=== PATIENT | female | born 1970 | race Caucasian/White ===

== ENCOUNTER → 2016-09-22 | Outpatient (CLI) | payer BC ==
[2014-05-03 11:22] VITALS: BP 143/84
[~2016-09-22] MED LIST: ALPR0.254 PO; ALPR0.5T PO; ANAS1TAB3 PO; DOCU-27 PO; FLUT1DIS IH; OXYC-323 PO; advair INH
--- NOTE | 2016-09-22 16:15 | KCIC ---
EXAM: Dual energy x-ray absorptiometry (DEXA). HISTORY: 45-year-old female on chemotherapy presents for osteoporosis screening. COMPARISON: None. TECHNIQUE: Dual energy x-ray absorptiometry of the lumbar spine and left hip was performed. Calculation of bone mineral density based on standard deviations above or below the expected young adult normal value (T-score) was completed. FINDINGS: The average bone mineral density in the 1st through 4th lumbar vertebrae is 1.017 g/cmxcm, corresponding with a T-score of -0.3. The average total bone mineral density in the left hip is 0.960 g/cmxcm, corresponding with a T-score of -0.1. IMPRESSION: Normal bone mineral density. Note: Definitions established by the World Health Organization: 1. Normal: T-score is -1.0 or above. 2. Osteopenia: T-score is between -1.0 and -2.5 . 3. Osteoporosis: T-score is -2.5 or below. Electronically signed by: Giselle Masterson MD (09/22/2016 4:12 PM)
== END | disposition home or self-care (01) ==
LOC: KCIC DEXA 15:19
PROVIDERS: ATTEND Internal Medicine Hematology & Oncology
DX: M81.0 Age-related osteoporosis without current pathological fracture (principal); C50.211 Malignant neoplasm of upper-inner quadrant of right female breast; M85.88 Other specified disorders of bone density and structure, other site; Z78.0 Asymptomatic menopausal state
CPT/HCPCS: 77080

== ENCOUNTER → 2019-12-05 | Outpatient (CLI) | payer BC ==
[2014-05-03 11:22] VITALS: BP 143/84
[~2019-12-05] MED LIST changes: -ANAS1TAB3 PO; +ANAS1TAB47 PO; +DOCU-109 PO; -DOCU-27 PO; -OXYC-323 PO; +OXYC1TAB15 PO
--- NOTE | 2019-12-05 08:35 | KCIC ---
Bone mineral density exam History: Postmenopausal, breast cancer and chemotherapy treatment Comparison: 09/22/2016 Findings: Bone mineral density examination utilizing DEXA was performed. Left hip bone mineral density of 0.925 g/cm2 corresponds with a T score -0.1, Z score 0.3. There has been -3.6% decrease. The bone mineral density of the lumbar spine was 1.019 g/cm2 which corresponds with a T-score of -0.3, Z score 0.4. There has been 0.3% increase. By World Congress on Osteoporosis criteria, a T score of 0 to-1 SD is considered to be within normal limits. A T score of -1 to -2.5 SD is considered osteopenia. A T score less than -2.5 SD is considered osteoporosis Impression: 1. There is normal bone density of the left hip and the lumbar spine. Electronically signed by: Dylon Salguero MD (12/05/2019 8:32 AM) [id number]
== END | disposition home or self-care (01) ==
LOC: KCIC DEXA 08:03
PROVIDERS: ATTEND Internal Medicine Hematology & Oncology
DX: C50.211 Malignant neoplasm of upper-inner quadrant of right female breast (principal); Z17.0 Estrogen receptor positive status [ER+]; Z13.820 Encounter for screening for osteoporosis
CPT/HCPCS: 77080

== ENCOUNTER → 2020-02-04 | Outpatient (CLI) | payer OTHER, BC ==
[2014-05-03 11:22] VITALS: BP 143/84
== END ==
LOC: LAB 08:04
PROVIDERS: ATTEND Internal Medicine Pulmonary Disease
DX: U07.1 COVID-19 (principal)
CPT/HCPCS: U0003-CS

== ENCOUNTER 2020-02-11 13:27 | Inpatient (IN) | payer BC, OTHER ==
[~2020-02-11] VITALS: Ht 172.7 cm; Wt 113.3 kg
--- NOTE | 2020-02-11 14:33 | RAD ---
CHEST AP ONLY History: Reason: sob, covid / Spl. Instructions: / History: Comparison: December 06, 2013 Findings: Multifocal ill-defined opacities bilaterally. No pleural effusion. No pneumothorax. Enlarged cardiac size although portable technique accentuates cardiac size. Impression: 1. Ill-defined multifocal opacities bilaterally, concerning for pneumonia including viral pneumonia. Recommend follow-up to ensure resolution. Electronically signed by: Bola Iniguez DO (02/11/2020 2:30 PM) [id number]
[2020-02-11 15:03] LABS: BASO % 0 % (0-3); EOS % 0 % (0-3); HEMATOCRIT 38.6 % (36.0-47.0); HEMOGLOBIN 13.3 g/dL (12.0-15.5); LYMPH # 0.9 x10^3/uL (1.0-4.8); LYMPH % 22 % (24-48); MEAN CORPUSCULAR HEMOGLOBIN 32 pg (25-35); MEAN CORPUSCULAR HGB CONC 35 g/dL (31-37); MEAN CORPUSCULAR VOLUME 92 fL (79-100); MONO # 0.2 x10^3/uL (0.0-1.1); MONO % 4 % (0-9); NEUT % 74 % (31-73); PLATELET COUNT 185 x10^3/uL (140-400); RED CELL DISTRIBUTION WIDTH 12.7 % (11.5-14.5); WHITE BLOOD COUNT 4.1 x10^3/uL (4.0-11.0)
[2020-02-11 15:11] LABS: CALCIUM 8.9 mg/dL (8.5-10.1); CREATININE 1.1 mg/dL (0.6-1.0)
[2020-02-11 15:17] LABS: ALBUMIN/GLOBULIN RATIO 0.7 (1.0-1.7); C-REACTIVE PROTEIN 59.9 mg/L (0-3.3); TOTAL BILIRUBIN 0.4 mg/dL (0.2-1.0); TOTAL PROTEIN 7.2 g/dL (6.4-8.2)
--- NOTE | 2020-02-11 16:01 | ED.ADGEN ---
Past Medical History Past Medical History: Asthma, Cancer, Hypertension Additional Past Medical Histor: RIGHT BREAST CA Past Surgical History: Hysterectomy Additional Past Surgical Histo: BIALTERAL MASTECTOMY Smoking Status: Former Smoker Alcohol Use: Occasionally General Adult EDM: Chief Complaint: FEVER HPI: HPI: Patient is 49-year-old female who presents to the emergency room complaining of fever, cough, shortness of breath. Patient tested positive for coronavirus last Tuesday. She has not gotten any better. She saw her doctor today who recommended she come to the emergency room to be evaluated. Review of Systems: Review of Systems: General: Reports fever, chills, sweats, fatigue Eyes: Denies drainage, blurred vision, eye redness HENT: Denies rhinorrhea, sore throat, earache Respiratory: Reports cough, shortness of breath Cardiac: Denies edema, palpitations, chest pain GI: Denies abdominal pain, Nausea, vomiting MSK: Denies back pain, neck pain Skin: Denies rash, jaundice Neuro: Denies headache, dizziness Psychiatric: Denies SI/HI Allergies: Allergies: Allergies Coded Allergies Type Severity Reaction Last Updated Verified metoclopramide Allergy Severe seizures 05/03/14 Yes prochlorperazine Allergy Severe seizures 05/03/14 Yes latex Allergy Intermediate RED RASH FROM GLOVES AND TAPES 05/03/14 Yes levofloxacin Allergy Intermediate Rash 05/03/14 Yes morphine Allergy Intermediate Hives 02/11/20 Yes adhesive Adverse Reaction Intermediate red welts 05/03/14 Yes Physical Exam: PE: General: Awake, alert, NAD. Well Nourished, well hydrated. Cooperative HEENT: Atraumatic, EOMI, PERRL, airway patent, moist oral mucosa Neck: Supple, trachea midline Respiratory: Decreased breath sounds with crackles bilaterally CV: RRR, no murmur, cap refill <2 GI: Soft, nondistended, nontender, no masses MSK: No obvious deformities Skin: Warm, dry, intact Neuro: A&O x3, speech NL, sensory and motor grossly intact, no focal deficits Psych: Normal affect, normal mood, not suicidal or homicidal Current Patient Data: Labs: Laboratory Tests Test 02/11/20 14:42 White Blood Count 4.1 x10^3/uL (4.0-11.0) Red Blood Count 4.20 x10^6/uL (3.50-5.40) Hemoglobin 13.3 g/dL (12.0-15.5) Hematocrit 38.6 % (36.0-47.0) Mean Corpuscular Volume 92 fL (79-100) Mean Corpuscular Hemoglobin 32 pg (25-35) Mean Corpuscular Hemoglobin Concent 35 g/dL (31-37) Red Cell Distribution Width 12.7 % (11.5-14.5) Platelet Count 185 x10^3/uL (140-400) Neutrophils (%) (Auto) 74 % (31-73) H Lymphocytes (%) (Auto) 22 % (24-48) L Monocytes (%) (Auto) 4 % (0-9) Eosinophils (%) (Auto) 0 % (0-3) Basophils (%) (Auto) 0 % (0-3) Neutrophils # (Auto) 3.0 x10^3/uL (1.8-7.7) Lymphocytes # (Auto) 0.9 x10^3/uL (1.0-4.8) L Monocytes # (Auto) 0.2 x10^3/uL (0.0-1.1) Eosinophils # (Auto) 0.0 x10^3/uL (0.0-0.7) Basophils # (Auto) 0.0 x10^3/uL (0.0-0.2) Sodium Level 136 mmol/L (136-145) Potassium Level 3.0 mmol/L (3.5-5.1) L Chloride Level 98 mmol/L (98-107) Carbon Dioxide Level 29 mmol/L (21-32) Anion Gap 9 (6-14) Blood Urea Nitrogen 17 mg/dL (7-20) Creatinine 1.1 mg/dL (0.6-1.0) H Estimated GFR (Cockcroft-Gault) 53.0 BUN/Creatinine Ratio 15 (6-20) Glucose Level 113 mg/dL (70-99) H Calcium Level 8.9 mg/dL (8.5-10.1) Total Bilirubin 0.4 mg/dL (0.2-1.0) Aspartate Amino Transferase (AST) 42 U/L (15-37) H Alanine Aminotransferase (ALT) 65 U/L (14-59) H Alkaline Phosphatase 98 U/L (46-116) Troponin I Quantitative < 0.017 ng/mL (0.000-0.055) C-Reactive Protein, Quantitative 59.9 mg/L (0-3.3) H IY-Zeb-Q-Type Natriuretic Peptide 99 pg/mL (0-124) Total Protein 7.2 g/dL (6.4-8.2) Albumin 3.0 g/dL (3.4-5.0) L Albumin/Globulin Ratio 0.7 (1.0-1.7) L Laboratory Tests 02/11/20 14:42 Laboratory Tests 02/11/20 14:42 Vital Signs: Vital Signs Date Time Temp Pulse Resp B/P (MAP) Pulse Ox O2 Delivery O2 Flow Rate FiO2 02/11/20 14:42 99.3 78 20 103/60 (74) 88 Room Air 99.3 EKG: EKG: [] Heart Score: Risk Factors: Risk Factors: DM, Current or recent (<one month) smoker, HTN, HLP, family history of CAD, obesity. Risk Scores: Score 0 - 3: 2.5% MACE over next 6 weeks - Discharge Home Score 4 - 6: 20.3% MACE over next 6 weeks - Admit for Clinical Observation Score 7 - 10: 72.7% MACE over next 6 weeks - Early Invasive Strategies Radiology/Procedures: Radiology/Procedures: [] Course & Med Decision Making: Course & Med Decision Making Pertinent Labs and Imaging studies reviewed. (See chart for details) Patient is a 49-year-old female who presents to the emergency room with shortness of breath, cough, fever. Patient has known coronavirus 19. Patient's risk factors include asthma. Upon reevaluation, patient is doing better on oxygen. Risk stratifying work-up was ordered including chest x-ray, d-dimer, CPK, CRP, LDH, troponin, ferritin, CBC, CMP. At this time, patients labs, vitals, and exam are significant for elevated LFTs, elevated inflammatory markers, bilateral infiltrates on x-ray. Due to patient's risk and clinical picture, they will need to be admitted at this time. IVFs will be limited due to concern for fluid overload in COVID-19 patients. Patient will be given empiric antibiotics due to infiltrates and risk of co-bacterial infection. Further treatment will be dictated by the inpatient team. Dragon Disclaimer: Dragon Disclaimer: This electronic medical record was generated, in whole or in part, using a voice recognition dictation system. Departure Departure Impression: Primary Impression: 2019 novel coronavirus detected Additional Impression: Hypoxia Disposition: 09 ADMITTED INPT THIS HOSP Condition: IMPROVED Referrals: CARLOS ENRIQUE DIALLO MD (PCP) Problem Qualifiers GURMEET MENDES MD Feb 11, 2020 16:01
[2020-02-11 16:14] LABS: LACTATE DEHYDROGENASE 376 U/L (81-234)
[2020-02-11] MEDS ORDERED: cefTRIAXone IV Push 1 GM VIAL. IVP ONE (16:15)
[2020-02-11] MEDS ORDERED: DEXAMETHASONE SOD PHOS 4 MG/ML VIAL IVP ONE (16:15)
[2020-02-11] MEDS ORDERED: POTASSIUM CHLORIDE 20 MEQ TABLET.ER. PO PRN (17:30)
[2020-02-11] MEDS ORDERED: ONDANSETRON PF 4 MG/2 ML VIAL. IVP PRN (17:30)
[2020-02-11] MEDS ORDERED: SENNOSIDES 8.6 MG TABLET PO PRN (17:30)
[2020-02-11] MEDS ORDERED: DEXTROSE 50% 25 GM / 50ML DISP.SYRIN. IV PRN (17:30)
[2020-02-11] MEDS ORDERED: ANTI-COAG MONITOR BY PHARMACY. MC PRN (17:30)
[2020-02-11] MEDS ORDERED: MAGNESIUM SULFATE 2GM 50 ML IV SCH (17:30)
[2020-02-11] MEDS ORDERED: ELECTROLYTE (NON-ICU) PROTOCOL. MC PRN (17:30)
[2020-02-11] MEDS ORDERED: POTASSIUM CHLORIDE 10MEQ 100 ML IV PRN (17:30)
[2020-02-11] MEDS ORDERED: DOCUSATE SODIUM 100 MG CAPSULE. PO PRN (17:30)
--- NOTE | 2020-02-11 17:36 | PDOC1 ---
History and Physical Date of Service: DOS: DATE: 02/11/20 TIME: 17:27 Chief Complaint: Chief Complain: Short of breath History of Present Illness: HPI: Patient is a 49-year-old female with past medical history of asthma and hypertension who presents with 3 to 4 days of fever cough and shortness of breath. Patient states that she returned from [place] last Tuesday and she gotten tested and she was positive for coronavirus. She states that she did have close contact with a COVID positive friend when they went to [place]. They are a total of 8 other friends that were affected and one of her friends is currently at the ICU at [facility]. She initially had diarrhea and she remained at home but she was not feeling any better and she was becoming more short of breath. She decided to come in today to become evaluated. Denies chest pain, abdominal pain, loss of smell, dysuria, bloody stools. Past Medical/Surgical History: PMH/PSH: Past Medical History: Asthma, Hypertension, RIGHT BREAST CA Past Surgical History: Hysterectomy, bilateral mastectomy Allergies: Allergies: Coded Allergies: metoclopramide (Verified Allergy, Severe, seizures, 05/03/14) prochlorperazine (Verified Allergy, Severe, seizures, 05/03/14) latex (Verified Allergy, Intermediate, RED RASH FROM GLOVES AND TAPES, 05/03/14) levofloxacin (Verified Allergy, Intermediate, Rash, 05/03/14) morphine (Verified Allergy, Intermediate, Hives, 02/11/20) adhesive (Verified Adverse Reaction, Intermediate, red welts, 05/03/14) Family History: Family History: Reviewed and none reported Social History: Social History: Smoking Status: Former Smoker Alcohol Use: Occasionally Current Medications: Current Medications Current Medications Ceftriaxone Sodium (Rocephin) 1 gm 1X ONCE IVP ; Start 02/11/20 at 16:15; Stop 02/11/20 at 16:16; Status DC Dexamethasone Sodium Phosphate (Decadron) 10 mg 1X ONCE IVP ; Start 02/11/20 at 16:15; Stop 02/11/20 at 16:16; Status DC Enoxaparin Sodium (Lovenox Per Pharmacy Treatment Dosing) 1 each PRN DAILY PRN MC SEE COMMENTS; Start 02/11/20 at 17:30; Status UNV Ascorbic Acid (Vitamin C) 500 mg DAILY PO ; Start 02/12/20 at 09:00 Thiamine Mononitrate (Vitamin B-1) 100 mg DAILY PO ; Start 02/12/20 at 09:00 Methylprednisolone Sodium Succinate (SOLU-Medrol 40MG VIAL) 40 mg Q8HRS IV ; Start 02/11/20 at 22:00 Albuterol/ Ipratropium (Combivent Respimat 20-100 Mcg) 1 puff RTQID INH ; Start 02/11/20 at 20:00 Active Scripts Active Reported Arimidex (Anastrozole) 1 Mg Tablet 1 Mg PO DAILY Alprazolam 0.25 Mg Tablet 0.25 Mg PO PRN 3-4XDAILY PRN Advair 100-50 Diskus (Fluticasone/Salmeterol) 1 Each Disk.w.dev 1 Inh IH DAILY ROS: Review of Systems Review of System REVIEW OF SYSTEMS: GENERAL: Denies weakness SKIN: No bruising, hair changes or rashes. EYES: No blurred, double or loss of vision. NOSE AND THROAT: No history of nosebleeds, hoarseness or sore throat. HEART: No history of palpitations, chest pain or shortness of breath on exertion. LUNGS: Denies cough, hemoptysis, wheezing or shortness of breath. GASTROINTESTINAL: Denies changes in appetite, nausea, vomiting, diarrhea or constipation. GENITOURINARY: No history of frequency, urgency, hesitancy or nocturia. NEUROLOGIC: Denies history of numbness, tingling, or tremor. PSYCHIATRIC: No history of panic, anxiety or depression. ENDOCRINE: No history of heat or cold intolerance, polyuria or polydipsia. EXTREMITIES: Denies joint pain, pain on walking or stiffness. Physical Exam: Vital Signs: Vital Signs Date Time Temp Pulse Resp B/P (MAP) Pulse Ox O2 Delivery O2 Flow Rate FiO2 02/11/20 14:42 99.3 78 20 103/60 (74) 88 Room Air 99.3 Physcial Exam: GEN: No apparent distress. Alert and oriented HEENT: Normal cephalic, atraumatic, external auditory canals are patent EYES: Extraocular muscles are intact, pupil are equally round and reactive to light and accommodation MUSCULOSKELETAL: Well developed , well nourished, good range of motion ENDOCRINE: No thyromegaly was palpated LYMPHATICS: No cervical chain or axillary nodes were noted HEMATOPOIETIC: No bruising NECK: Supple, no JVD, no thyromegaly was noted LUNGS: Clear to auscultation in all lung hyatt without rhonchi or wheezing HEART: RRR, S!, S2 present. Peripheral pulses intact, no obvious murmurs noted ABDOMEN: Soft, nontender. Positive bowel sounds, no organomegaly, normal bowel sounds EXTREMITIES: Without clubbing, cyanosis, or edema. Pedal pulses intact. Negative Homans sign NEUROLOGIC: Normal speech and tone. A&O x 3, moves all extremities, no obvious focal deficits PSYCHIATRIC: Normal affect, normal mood. Stable SKIN: No ulcerations or rashes, good skin turgor, no jaundice VASCULAR: Good capillary refill, neurovascular bundle appears to be intact Labs: Labs: Laboratory Tests Test 02/11/20 14:42 White Blood Count 4.1 x10^3/uL (4.0-11.0) Red Blood Count 4.20 x10^6/uL (3.50-5.40) Hemoglobin 13.3 g/dL (12.0-15.5) Hematocrit 38.6 % (36.0-47.0) Mean Corpuscular Volume 92 fL (79-100) Mean Corpuscular Hemoglobin 32 pg (25-35) Mean Corpuscular Hemoglobin Concent 35 g/dL (31-37) Red Cell Distribution Width 12.7 % (11.5-14.5) Platelet Count 185 x10^3/uL (140-400) Neutrophils (%) (Auto) 74 % (31-73) Lymphocytes (%) (Auto) 22 % (24-48) Monocytes (%) (Auto) 4 % (0-9) Eosinophils (%) (Auto) 0 % (0-3) Basophils (%) (Auto) 0 % (0-3) Neutrophils # (Auto) 3.0 x10^3/uL (1.8-7.7) Lymphocytes # (Auto) 0.9 x10^3/uL (1.0-4.8) Monocytes # (Auto) 0.2 x10^3/uL (0.0-1.1) Eosinophils # (Auto) 0.0 x10^3/uL (0.0-0.7) Basophils # (Auto) 0.0 x10^3/uL (0.0-0.2) Sodium Level 136 mmol/L (136-145) Potassium Level 3.0 mmol/L (3.5-5.1) Chloride Level 98 mmol/L (98-107) Carbon Dioxide Level 29 mmol/L (21-32) Anion Gap 9 (6-14) Blood Urea Nitrogen 17 mg/dL (7-20) Creatinine 1.1 mg/dL (0.6-1.0) Estimated GFR (Cockcroft-Gault) 53.0 BUN/Creatinine Ratio 15 (6-20) Glucose Level 113 mg/dL (70-99) Calcium Level 8.9 mg/dL (8.5-10.1) Ferritin 464 ng/mL (8-252) Total Bilirubin 0.4 mg/dL (0.2-1.0) Aspartate Amino Transf (AST/SGOT) 42 U/L (15-37) Alanine Aminotransferase (ALT/SGPT) 65 U/L (14-59) Alkaline Phosphatase 98 U/L (46-116) Lactate Dehydrogenase 376 U/L (81-234) Troponin I Quantitative < 0.017 ng/mL (0.000-0.055) C-Reactive Protein, Quantitative 59.9 mg/L (0-3.3) ZI-Xrg-R-Type Natriuretic Peptide 99 pg/mL (0-124) Total Protein 7.2 g/dL (6.4-8.2) Albumin 3.0 g/dL (3.4-5.0) Albumin/Globulin Ratio 0.7 (1.0-1.7) Laboratory Tests Test 02/11/20 14:42 White Blood Count 4.1 x10^3/uL (4.0-11.0) Red Blood Count 4.20 x10^6/uL (3.50-5.40) Hemoglobin 13.3 g/dL (12.0-15.5) Hematocrit 38.6 % (36.0-47.0) Mean Corpuscular Volume 92 fL (79-100) Mean Corpuscular Hemoglobin 32 pg (25-35) Mean Corpuscular Hemoglobin Concent 35 g/dL (31-37) Red Cell Distribution Width 12.7 % (11.5-14.5) Platelet Count 185 x10^3/uL (140-400) Neutrophils (%) (Auto) 74 % (31-73) Lymphocytes (%) (Auto) 22 % (24-48) Monocytes (%) (Auto) 4 % (0-9) Eosinophils (%) (Auto) 0 % (0-3) Basophils (%) (Auto) 0 % (0-3) Neutrophils # (Auto) 3.0 x10^3/uL (1.8-7.7) Lymphocytes # (Auto) 0.9 x10^3/uL (1.0-4.8) Monocytes # (Auto) 0.2 x10^3/uL (0.0-1.1) Eosinophils # (Auto) 0.0 x10^3/uL (0.0-0.7) Basophils # (Auto) 0.0 x10^3/uL (0.0-0.2) Sodium Level 136 mmol/L (136-145) Potassium Level 3.0 mmol/L (3.5-5.1) Chloride Level 98 mmol/L (98-107) Carbon Dioxide Level 29 mmol/L (21-32) Anion Gap 9 (6-14) Blood Urea Nitrogen 17 mg/dL (7-20) Creatinine 1.1 mg/dL (0.6-1.0) Estimated GFR (Cockcroft-Gault) 53.0 BUN/Creatinine Ratio 15 (6-20) Glucose Level 113 mg/dL (70-99) Calcium Level 8.9 mg/dL (8.5-10.1) Ferritin 464 ng/mL (8-252) Total Bilirubin 0.4 mg/dL (0.2-1.0) Aspartate Amino Transf (AST/SGOT) 42 U/L (15-37) Alanine Aminotransferase (ALT/SGPT) 65 U/L (14-59) Alkaline Phosphatase 98 U/L (46-116) Lactate Dehydrogenase 376 U/L (81-234) Troponin I Quantitative < 0.017 ng/mL (0.000-0.055) C-Reactive Protein, Quantitative 59.9 mg/L (0-3.3) LO-Nqt-P-Type Natriuretic Peptide 99 pg/mL (0-124) Total Protein 7.2 g/dL (6.4-8.2) Albumin 3.0 g/dL (3.4-5.0) Albumin/Globulin Ratio 0.7 (1.0-1.7) Images: Images CXR Impression: 1. Ill-defined multifocal opacities bilaterally, concerning for pneumonia including viral pneumonia. Recommend follow-up to ensure resolution. Assessment/Plan Assessment/Plan Acute hypoxic respiratory failure. COVID-19 pneumonia Hypokalemia DUNCAN due to vasomotor nephropathy Transaminitis Elevated ferritin and LDH levels Morbid obesity Admit to medicine for further management Pulmonary consult O2 supplementation to maintain saturations greater than 92% Start high-dose IV steroids IV and p.o. thiamine daily Vitamin C daily Pending D-dimer Lovenox for DVT treatment Regular diet Full code Discussed with RN and SW Disposition inpatient care as above Surrogate decision maker is the Justifications for Admission Other Justification COVID 19 infection GIN CHATMAN MD Feb 11, 2020 17:36
[2020-02-11] MEDS ORDERED: IBUPROFEN 200 MG TABLET. PO PRN (18:30)
[2020-02-11] MEDS ORDERED: ACETAMINOPHEN 325 MG TABLET. PO PRN (18:30)
[2020-02-11 20:07] LABS: INFLUENZA A PATIENT NEGATIVE (NEGATIVE); INFLUENZA B PATIENT NEGATIVE (NEGATIVE)
[2020-02-11 20:40] VITALS: BP 139/65
[2020-02-11] MEDS ORDERED: MAGNESIUM OXIDE 400 MG TABLET PO SCH (21:00)
[2020-02-11] MEDS: POTASSIUM CHLORIDE 10MEQ 100 ML IV SCH ×2 (22:00→23:15)
[2020-02-11] MEDS: methylPREDNISolone SOD SUCC PF 40 MG/ML VIAL. IV SCH (22:01)
[2020-02-11] MEDS: IPRATROPIUM/ALBUTEROL 20/100mcg/INH INHALER. INH SCH (22:07)
[2020-02-11 23:00] VITALS: BP 105/60
[2020-02-12] VITALS (8 sets, daily range): BP systolic 95–139; BP diastolic 53–63
[2020-02-12] MEDS: POTASSIUM CHLORIDE 10MEQ 100 ML IV SCH ×2 (00:59→04:26)
[2020-02-12] MEDS ORDERED: LOSA1TAB19 PO (04:29)
[2020-02-12] MEDS: methylPREDNISolone SOD SUCC PF 40 MG/ML VIAL. IV SCH ×3 (06:35→21:45)
[2020-02-12] MEDS: IPRATROPIUM/ALBUTEROL 20/100mcg/INH INHALER. INH SCH ×4 (08:00→22:44)
[2020-02-12] MEDS ORDERED: THIAMINE 100 MG TABLET. PO SCH (09:00)
[2020-02-12] MEDS: THIAMINE INJ 100 MG in IV DEXTROSE 5% 50 ML IV SCH (10:47)
[2020-02-12] MEDS: ASCORBIC ACID 500 MG TABLET PO SCH (10:48)
[2020-02-12 12:20] LABS: BASO % 0 % (0-3); EOS % 0 % (0-3); HEMATOCRIT 38.6 % (36.0-47.0); HEMOGLOBIN 13.6 g/dL (12.0-15.5); LYMPH # 0.4 x10^3/uL (1.0-4.8); LYMPH % 10 % (24-48); MEAN CORPUSCULAR HEMOGLOBIN 32 pg (25-35); MEAN CORPUSCULAR HGB CONC 35 g/dL (31-37); MEAN CORPUSCULAR VOLUME 92 fL (79-100); MONO # 0.1 x10^3/uL (0.0-1.1); MONO % 2 % (0-9); NEUT # 3.4 x10^3/uL (1.8-7.7); NEUT % 88 % (31-73); PLATELET COUNT 221 x10^3/uL (140-400); RED BLOOD COUNT 4.22 x10^6/uL (3.50-5.40); RED CELL DISTRIBUTION WIDTH 12.9 % (11.5-14.5); WHITE BLOOD COUNT 3.9 x10^3/uL (4.0-11.0)
[2020-02-12 12:24] LABS: CALCIUM 9.2 mg/dL (8.5-10.1); CREATININE 0.9 mg/dL (0.6-1.0); GFR 66.8; MAGNESIUM 2.5 mg/dL (1.8-2.4); PHOSPHORUS 2.6 mg/dL (2.6-4.7); POTASSIUM 3.6 mmol/L (3.5-5.1)
[2020-02-12 13:13] LABS: % BANDS 6 % (0-9); % LYMPHS 8 % (24-48); % SEGS 86 % (35-66)
[2020-02-12 13:14] LABS: PLT ESTIMATE ADEQUATE (ADEQUATE)
--- NOTE | 2020-02-12 14:42 | PDOC ---
[employer] PROGRESS NOTE Date of Service DOS: DATE: 02/12/20 TIME: 14:38 Chief Complaint Chief Complaint Acute hypoxic respiratory failure. COVID-19 pneumonia Hypokalemia DUNCAN due to vasomotor nephropathy Transaminitis Elevated ferritin and LDH levels Morbid obesity Admit to medicine for further management Pulmonary consult O2 supplementation to maintain saturations greater than 92% Start high-dose IV steroids IV and p.o. thiamine daily Vitamin C daily Pending D-dimer Lovenox for DVT treatment Regular diet Full code Discussed with RN and SW Disposition inpatient care as above Surrogate decision maker is the History of Present Illness History of Present Illness 49-year-old female with past medical history of asthma and hypertension who presents with 3 to 4 days of fever cough and shortness of breath. Patient states that she returned from [place] last Tuesday and she gotten tested and she was positive for coronavirus. She states that she did have close contact with a COVID positive friend when they went to [place]. They are a total of 8 other friends that were affected and one of her friends is currently at the ICU at [facility]. She initially had diarrhea and she remained at home but she was not feeling any better and she was becoming more short of breath. She decided to come in today to become evaluated. Denies chest pain, abdominal pain, loss of smell, dysuria, bloody stools. 02/12/2020 No acute events overnight. Patient is saturating comfortably on 2 L nasal cannula. She feels much better and has more energy. Patient's chart, labs, images were reviewed and discussed with RN Vitals/I&O Vitals/I&O: Vital Signs Date Time Temp Pulse Resp B/P (MAP) Pulse Ox O2 Delivery O2 Flow Rate FiO2 02/12/20 11:00 98.2 73 18 139/63 (88) 90 98.2 02/12/20 04:30 Nasal Cannula 2.0 I & O 02/11/20 02/11/20 02/12/20 15:00 23:00 07:00 Intake Total 100 ml Balance 100 ml Physical Exam Physical Exam: GEN: No apparent distress. Alert and oriented HEENT: Normal cephalic, atraumatic, external auditory canals are patent NECK: Supple, no JVD, no thyromegaly was noted LUNGS: Bilateral clear HEART: RRR, S1, S2 present. Peripheral pulses intact, no obvious murmurs noted ABDOMEN: Soft, nontender. Positive bowel sounds, no organomegaly, normal bowel sounds EXTREMITIES: Without clubbing, cyanosis, or edema. Pedal pulses intact. Negative Homans sign Labs Labs: Laboratory Tests Test 02/11/20 14:42 02/11/20 19:40 02/12/20 11:30 White Blood Count 4.1 x10^3/uL (4.0-11.0) 3.9 x10^3/uL (4.0-11.0) Red Blood Count 4.20 x10^6/uL (3.50-5.40) 4.22 x10^6/uL (3.50-5.40) Hemoglobin 13.3 g/dL (12.0-15.5) 13.6 g/dL (12.0-15.5) Hematocrit 38.6 % (36.0-47.0) 38.6 % (36.0-47.0) Mean Corpuscular Volume 92 fL (79-100) 92 fL (79-100) Mean Corpuscular Hemoglobin 32 pg (25-35) 32 pg (25-35) Mean Corpuscular Hemoglobin Concent 35 g/dL (31-37) 35 g/dL (31-37) Red Cell Distribution Width 12.7 % (11.5-14.5) 12.9 % (11.5-14.5) Platelet Count 185 x10^3/uL (140-400) 221 x10^3/uL (140-400) Neutrophils (%) (Auto) 74 % (31-73) 88 % (31-73) Lymphocytes (%) (Auto) 22 % (24-48) 10 % (24-48) Monocytes (%) (Auto) 4 % (0-9) 2 % (0-9) Eosinophils (%) (Auto) 0 % (0-3) 0 % (0-3) Basophils (%) (Auto) 0 % (0-3) 0 % (0-3) Neutrophils # (Auto) 3.0 x10^3/uL (1.8-7.7) 3.4 x10^3/uL (1.8-7.7) Lymphocytes # (Auto) 0.9 x10^3/uL (1.0-4.8) 0.4 x10^3/uL (1.0-4.8) Monocytes # (Auto) 0.2 x10^3/uL (0.0-1.1) 0.1 x10^3/uL (0.0-1.1) Eosinophils # (Auto) 0.0 x10^3/uL (0.0-0.7) 0.0 x10^3/uL (0.0-0.7) Basophils # (Auto) 0.0 x10^3/uL (0.0-0.2) 0.0 x10^3/uL (0.0-0.2) Sodium Level 136 mmol/L (136-145) 136 mmol/L (136-145) Potassium Level 3.0 mmol/L (3.5-5.1) 3.6 mmol/L (3.5-5.1) Chloride Level 98 mmol/L (98-107) 99 mmol/L (98-107) Carbon Dioxide Level 29 mmol/L (21-32) 24 mmol/L (21-32) Anion Gap 9 (6-14) 13 (6-14) Blood Urea Nitrogen 17 mg/dL (7-20) 16 mg/dL (7-20) Creatinine 1.1 mg/dL (0.6-1.0) 0.9 mg/dL (0.6-1.0) Estimated GFR (Cockcroft-Gault) 53.0 66.8 BUN/Creatinine Ratio 15 (6-20) Glucose Level 113 mg/dL (70-99) 193 mg/dL (70-99) Calcium Level 8.9 mg/dL (8.5-10.1) 9.2 mg/dL (8.5-10.1) Ferritin 464 ng/mL (8-252) Total Bilirubin 0.4 mg/dL (0.2-1.0) Aspartate Amino Transf (AST/SGOT) 42 U/L (15-37) Alanine Aminotransferase (ALT/SGPT) 65 U/L (14-59) Alkaline Phosphatase 98 U/L (46-116) Lactate Dehydrogenase 376 U/L (81-234) Troponin I Quantitative < 0.017 ng/mL (0.000-0.055) C-Reactive Protein, Quantitative 59.9 mg/L (0-3.3) IR-Tpf-A-Type Natriuretic Peptide 99 pg/mL (0-124) Total Protein 7.2 g/dL (6.4-8.2) Albumin 3.0 g/dL (3.4-5.0) Albumin/Globulin Ratio 0.7 (1.0-1.7) Influenza Type A Antigen Negative (NEGATIVE) Influenza Type B Antigen Negative (NEGATIVE) Segmented Neutrophils % 86 % (35-66) Band Neutrophils % 6 % (0-9) Lymphocytes % 8 % (24-48) Platelet Estimate Adequate (ADEQUATE) Phosphorus Level 2.6 mg/dL (2.6-4.7) Magnesium Level 2.5 mg/dL (1.8-2.4) Assessment and Plan Assessmemt and Plan Problems Medical Problems: (1) 2019 novel coronavirus detected Status: Acute (2) Hypoxia Status: Acute Comment Review of Relevant I have reviewed the following items zofia (where applicable) has been applied. Medications: Current Medications Medications (Trade) Dose Ordered Sig/Lamar Route PRN Reason Start Time Stop Time Status Last Admin Dose Admin Ceftriaxone Sodium (Rocephin) 1 gm 1X ONCE IVP 02/11/20 16:15 02/11/20 16:16 DC 02/11/20 17:34 Dexamethasone Sodium Phosphate (Decadron) 10 mg 1X ONCE IVP 02/11/20 16:15 02/11/20 16:16 DC 02/11/20 17:33 Ascorbic Acid (Vitamin C) 500 mg DAILY PO 02/12/20 09:00 02/12/20 10:48 Methylprednisolone Sodium Succinate (SOLU-Medrol 40MG VIAL) 40 mg Q8HRS IV 02/11/20 22:00 02/12/20 13:17 Thiamine HCl 100 mg/Dextrose 51 ml @ 102 mls/hr DAILY IV 02/12/20 09:00 02/16/20 09:29 02/12/20 10:47 Potassium Chloride/Water 100 ml @ 100 mls/hr Q1H IV 02/11/20 18:00 02/11/20 21:59 DC 02/12/20 04:26 Albuterol/ Ipratropium (Combivent Respimat 20-100 Mcg) 1 puff RTQID INH 02/11/20 20:00 02/11/20 22:07 Enoxaparin Sodium (Lovenox 120mg Syringe) 110 mg Q12HR SQ 02/11/20 18:00 02/12/20 10:47 Info (Anti-Coagulation Monitoring By Pharmacy) 1 each PRN DAILY PRN MC SEE COMMENTS 02/11/20 17:30 02/12/20 10:45 Acetaminophen (Tylenol) 650 mg PRN Q6HRS PRN PO MILD PAIN / TEMP > 100.3'F 02/11/20 18:30 02/11/20 20:25 Justifications for Admission Other Justification COVID 19 infection GIN CHATMAN MD Feb 12, 2020 14:42
[2020-02-12] MEDS ORDERED: REMDESIVIR LOAD in IV NORMAL SALINE 250ML TV IV ONE (17:00)
--- NOTE | 2020-02-12 17:15 | NUR ---
SW following. Spoke with RN and reviewed chart. Pt from home with spouse. Pt currently on 2l 02 with no home 02. 6 min walk has been ordered. SW spoke with pt by phone as pt is COVID positive. Pt stated she does have a nebulizer at home and stated no preference in home 02 provider should 6 min walk indicate 02 is needed at discharge. Pt up ad [place] with no skilled therapy needs per PT. SW following for discharge planning.
[2020-02-12] MEDS ORDERED: ACETAMINOPHEN 325 MG TABLET. PO PRN (17:30)
[2020-02-12] MEDS ORDERED: diphenhydrAMINE ORAL ELIXIR 12.5 MG/5 ML ML PO PRN (17:30)
[2020-02-12] MEDS ORDERED: diphenhydrAMINE HCL 25 MG CAPSULE PO PRN (17:30)
--- NOTE | 2020-02-12 18:05 | PDOC ---
PULMONARY PROGRESS NOTES DATE: 02/12/20 TIME: 18:00 Vitals Vital Signs Date Time Temp Pulse Resp B/P (MAP) Pulse Ox O2 Delivery O2 Flow Rate FiO2 02/12/20 15:04 98.4 66 18 113/61 (78) 96 Room Air 2.0 98.4 Labs Laboratory Tests Test 02/11/20 14:42 02/11/20 19:40 02/12/20 11:30 White Blood Count 4.1 x10^3/uL (4.0-11.0) 3.9 x10^3/uL (4.0-11.0) Red Blood Count 4.20 x10^6/uL (3.50-5.40) 4.22 x10^6/uL (3.50-5.40) Hemoglobin 13.3 g/dL (12.0-15.5) 13.6 g/dL (12.0-15.5) Hematocrit 38.6 % (36.0-47.0) 38.6 % (36.0-47.0) Mean Corpuscular Volume 92 fL (79-100) 92 fL (79-100) Mean Corpuscular Hemoglobin 32 pg (25-35) 32 pg (25-35) Mean Corpuscular Hemoglobin Concent 35 g/dL (31-37) 35 g/dL (31-37) Red Cell Distribution Width 12.7 % (11.5-14.5) 12.9 % (11.5-14.5) Platelet Count 185 x10^3/uL (140-400) 221 x10^3/uL (140-400) Neutrophils (%) (Auto) 74 % (31-73) 88 % (31-73) Lymphocytes (%) (Auto) 22 % (24-48) 10 % (24-48) Monocytes (%) (Auto) 4 % (0-9) 2 % (0-9) Eosinophils (%) (Auto) 0 % (0-3) 0 % (0-3) Basophils (%) (Auto) 0 % (0-3) 0 % (0-3) Neutrophils # (Auto) 3.0 x10^3/uL (1.8-7.7) 3.4 x10^3/uL (1.8-7.7) Lymphocytes # (Auto) 0.9 x10^3/uL (1.0-4.8) 0.4 x10^3/uL (1.0-4.8) Monocytes # (Auto) 0.2 x10^3/uL (0.0-1.1) 0.1 x10^3/uL (0.0-1.1) Eosinophils # (Auto) 0.0 x10^3/uL (0.0-0.7) 0.0 x10^3/uL (0.0-0.7) Basophils # (Auto) 0.0 x10^3/uL (0.0-0.2) 0.0 x10^3/uL (0.0-0.2) Sodium Level 136 mmol/L (136-145) 136 mmol/L (136-145) Potassium Level 3.0 mmol/L (3.5-5.1) 3.6 mmol/L (3.5-5.1) Chloride Level 98 mmol/L (98-107) 99 mmol/L (98-107) Carbon Dioxide Level 29 mmol/L (21-32) 24 mmol/L (21-32) Anion Gap 9 (6-14) 13 (6-14) Blood Urea Nitrogen 17 mg/dL (7-20) 16 mg/dL (7-20) Creatinine 1.1 mg/dL (0.6-1.0) 0.9 mg/dL (0.6-1.0) Estimated GFR (Cockcroft-Gault) 53.0 66.8 BUN/Creatinine Ratio 15 (6-20) Glucose Level 113 mg/dL (70-99) 193 mg/dL (70-99) Calcium Level 8.9 mg/dL (8.5-10.1) 9.2 mg/dL (8.5-10.1) Ferritin 464 ng/mL (8-252) Total Bilirubin 0.4 mg/dL (0.2-1.0) Aspartate Amino Transf (AST/SGOT) 42 U/L (15-37) Alanine Aminotransferase (ALT/SGPT) 65 U/L (14-59) Alkaline Phosphatase 98 U/L (46-116) Lactate Dehydrogenase 376 U/L (81-234) Troponin I Quantitative < 0.017 ng/mL (0.000-0.055) C-Reactive Protein, Quantitative 59.9 mg/L (0-3.3) DE-Gvk-V-Type Natriuretic Peptide 99 pg/mL (0-124) Total Protein 7.2 g/dL (6.4-8.2) Albumin 3.0 g/dL (3.4-5.0) Albumin/Globulin Ratio 0.7 (1.0-1.7) Influenza Type A Antigen Negative (NEGATIVE) Influenza Type B Antigen Negative (NEGATIVE) Segmented Neutrophils % 86 % (35-66) Band Neutrophils % 6 % (0-9) Lymphocytes % 8 % (24-48) Platelet Estimate Adequate (ADEQUATE) Phosphorus Level 2.6 mg/dL (2.6-4.7) Magnesium Level 2.5 mg/dL (1.8-2.4) Laboratory Tests Test 02/11/20 19:40 02/12/20 11:30 Influenza Type A Antigen Negative (NEGATIVE) Influenza Type B Antigen Negative (NEGATIVE) White Blood Count 3.9 x10^3/uL (4.0-11.0) Red Blood Count 4.22 x10^6/uL (3.50-5.40) Hemoglobin 13.6 g/dL (12.0-15.5) Hematocrit 38.6 % (36.0-47.0) Mean Corpuscular Volume 92 fL (79-100) Mean Corpuscular Hemoglobin 32 pg (25-35) Mean Corpuscular Hemoglobin Concent 35 g/dL (31-37) Red Cell Distribution Width 12.9 % (11.5-14.5) Platelet Count 221 x10^3/uL (140-400) Neutrophils (%) (Auto) 88 % (31-73) Lymphocytes (%) (Auto) 10 % (24-48) Monocytes (%) (Auto) 2 % (0-9) Eosinophils (%) (Auto) 0 % (0-3) Basophils (%) (Auto) 0 % (0-3) Neutrophils # (Auto) 3.4 x10^3/uL (1.8-7.7) Lymphocytes # (Auto) 0.4 x10^3/uL (1.0-4.8) Monocytes # (Auto) 0.1 x10^3/uL (0.0-1.1) Eosinophils # (Auto) 0.0 x10^3/uL (0.0-0.7) Basophils # (Auto) 0.0 x10^3/uL (0.0-0.2) Segmented Neutrophils % 86 % (35-66) Band Neutrophils % 6 % (0-9) Lymphocytes % 8 % (24-48) Platelet Estimate Adequate (ADEQUATE) Sodium Level 136 mmol/L (136-145) Potassium Level 3.6 mmol/L (3.5-5.1) Chloride Level 99 mmol/L (98-107) Carbon Dioxide Level 24 mmol/L (21-32) Anion Gap 13 (6-14) Blood Urea Nitrogen 16 mg/dL (7-20) Creatinine 0.9 mg/dL (0.6-1.0) Estimated GFR (Cockcroft-Gault) 66.8 Glucose Level 193 mg/dL (70-99) Calcium Level 9.2 mg/dL (8.5-10.1) Phosphorus Level 2.6 mg/dL (2.6-4.7) Magnesium Level 2.5 mg/dL (1.8-2.4) Medications Active Scripts Medications Dose Route/Sig Max Daily Dose Days Date Category Losartan-Hctz 50-12.5 Mg Tab (Losartan/Hydrochlorothiazide) 1 Each Tablet 1 Tab PO DAILY 02/12/20 Reported Arimidex (Anastrozole) 1 Mg Tablet 1 Mg PO DAILY 05/02/14 Reported Alprazolam 0.25 Mg Tablet 0.25 Mg PO PRN 3-4XDAILY PRN 05/02/14 Reported Advair 100-50 Diskus (Fluticasone/Salmeterol) 1 Each Disk.w.dev 1 Inh IH DAILY 11/07/13 Reported Impression . Full note dictated I concur with current medical management Add remdesivir and plasma KIRA MARTINEZ MD Feb 12, 2020 18:05
--- NOTE | 2020-02-12 21:17 | CONS ---
DATE OF CONSULTATION: 02/12/2020 ATTENDING PHYSICIAN: Dr. Sanchez. REASON FOR CONSULTATION: The patient is seen in pulmonary consultation at the request of Dr. Sanchez for abnormal x-ray, hypoxemia, and increasing shortness of breath. HISTORY OF PRESENT ILLNESS: The patient is a 49-year-old that went on vacation to [place]. She returned and had some symptoms. She tested positive for SARS-CoV-2 approximately a week ago. She continues to have fever. She was more short of air. She presented to the Emergency Room, she was admitted. I was asked to see her in consultation. She had a chest x-ray, which revealed ill-defined multifocal opacities bilaterally. The patient, otherwise, has a history of asthma. PAST MEDICAL HISTORY: Asthma, hypertension, previous right breast cancer, hysterectomy, and bilateral mastectomy. ALLERGIES: TO MULTIPLE MEDICATIONS, PLEASE SEE THE LIST. FAMILY HISTORY: No significant family history of lung disorders. SOCIAL HISTORY: She is a former smoker. CURRENT MEDICATIONS: List was reviewed. She is receiving dexamethasone, ceftriaxone, and Lovenox. REVIEW OF SYSTEMS: As indicated above, otherwise, a 10-point system was reviewed and negative. PHYSICAL EXAMINATION: GENERAL: She had a fever yesterday of 101.3, today was 98.4. She did not appear to be in any significant respiratory distress. VITAL SIGNS: Otherwise stable. HEENT: Eyes, the sclerae were nonicteric. NECK: Jugular venous distention was not elevated. No lymphadenopathy. CHEST: On physical examination, the patient was seen during a COVID-19 pandemic. Visual inspection revealed no significant respiratory distress, no retraction, or accessory muscles being used. EXTREMITIES: Did not reveal any significant edema. LABORATORY DATA: Labs were reviewed. White count was normal. Serology for influenza was negative. Electrolytes were noted. C-reactive protein was elevated. Albumin was 3.0. White count was low with lymphopenia. Chest x-ray as described above. IMPRESSION: 1. Acute hypoxemic respiratory failure. 2. COVID-19 viral pneumonia. 3. Possible bacterial pneumonia. 4. Leukopenia. 5. Fever secondary to above. 6. Hypokalemia. 7. Elevated liver chemistries. 8. Protein malnutrition, present upon admission. PLAN: 1. We will continue support with steroids and oxygen. 2. Initiate remdesivir. 3. Initiate convalescent plasma infusion. 4. DVT prophylaxis. I do appreciate the privilege in sharing in this patient's care. KIRA MARTINEZ MD DR: THU/susan JOB#: [id number] / [id number]
[2020-02-12] MEDS: ENOXAPARIN 40 MG/0.4 ML SYRINGE. SQ SCH (21:45)
[2020-02-13] VITALS (8 sets, daily range): BP systolic 95–112; BP diastolic 54–70
[2020-02-13] MEDS: methylPREDNISolone SOD SUCC PF 40 MG/ML VIAL. IV SCH ×3 (05:59→21:49)
[2020-02-13] MEDS: IPRATROPIUM/ALBUTEROL 20/100mcg/INH INHALER. INH SCH ×2 (08:00→12:00)
--- NOTE | 2020-02-13 08:26 | PDOC ---
PULMONARY PROGRESS NOTES DATE: 02/13/20 TIME: 08:25 Subjective PT. denies increased SOA or cough afebrile overnight remains on liters N/C Vitals Vital Signs Date Time Temp Pulse Resp B/P (MAP) Pulse Ox O2 Delivery O2 Flow Rate FiO2 02/13/20 07:05 98.2 68 22 112/54 (73) 90 Nasal Cannula 3.0 98.2 Comments Pt. seen gayla koid -19 pandemic, visual exam preformed RRR N/C no edema no rash Labs Laboratory Tests Test 02/11/20 14:42 02/11/20 19:40 02/12/20 11:30 White Blood Count 4.1 x10^3/uL (4.0-11.0) 3.9 x10^3/uL (4.0-11.0) Red Blood Count 4.20 x10^6/uL (3.50-5.40) 4.22 x10^6/uL (3.50-5.40) Hemoglobin 13.3 g/dL (12.0-15.5) 13.6 g/dL (12.0-15.5) Hematocrit 38.6 % (36.0-47.0) 38.6 % (36.0-47.0) Mean Corpuscular Volume 92 fL (79-100) 92 fL (79-100) Mean Corpuscular Hemoglobin 32 pg (25-35) 32 pg (25-35) Mean Corpuscular Hemoglobin Concent 35 g/dL (31-37) 35 g/dL (31-37) Red Cell Distribution Width 12.7 % (11.5-14.5) 12.9 % (11.5-14.5) Platelet Count 185 x10^3/uL (140-400) 221 x10^3/uL (140-400) Neutrophils (%) (Auto) 74 % (31-73) 88 % (31-73) Lymphocytes (%) (Auto) 22 % (24-48) 10 % (24-48) Monocytes (%) (Auto) 4 % (0-9) 2 % (0-9) Eosinophils (%) (Auto) 0 % (0-3) 0 % (0-3) Basophils (%) (Auto) 0 % (0-3) 0 % (0-3) Neutrophils # (Auto) 3.0 x10^3/uL (1.8-7.7) 3.4 x10^3/uL (1.8-7.7) Lymphocytes # (Auto) 0.9 x10^3/uL (1.0-4.8) 0.4 x10^3/uL (1.0-4.8) Monocytes # (Auto) 0.2 x10^3/uL (0.0-1.1) 0.1 x10^3/uL (0.0-1.1) Eosinophils # (Auto) 0.0 x10^3/uL (0.0-0.7) 0.0 x10^3/uL (0.0-0.7) Basophils # (Auto) 0.0 x10^3/uL (0.0-0.2) 0.0 x10^3/uL (0.0-0.2) Sodium Level 136 mmol/L (136-145) 136 mmol/L (136-145) Potassium Level 3.0 mmol/L (3.5-5.1) 3.6 mmol/L (3.5-5.1) Chloride Level 98 mmol/L (98-107) 99 mmol/L (98-107) Carbon Dioxide Level 29 mmol/L (21-32) 24 mmol/L (21-32) Anion Gap 9 (6-14) 13 (6-14) Blood Urea Nitrogen 17 mg/dL (7-20) 16 mg/dL (7-20) Creatinine 1.1 mg/dL (0.6-1.0) 0.9 mg/dL (0.6-1.0) Estimated GFR (Cockcroft-Gault) 53.0 66.8 BUN/Creatinine Ratio 15 (6-20) Glucose Level 113 mg/dL (70-99) 193 mg/dL (70-99) Calcium Level 8.9 mg/dL (8.5-10.1) 9.2 mg/dL (8.5-10.1) Ferritin 464 ng/mL (8-252) Total Bilirubin 0.4 mg/dL (0.2-1.0) Aspartate Amino Transf (AST/SGOT) 42 U/L (15-37) Alanine Aminotransferase (ALT/SGPT) 65 U/L (14-59) Alkaline Phosphatase 98 U/L (46-116) Lactate Dehydrogenase 376 U/L (81-234) Troponin I Quantitative < 0.017 ng/mL (0.000-0.055) C-Reactive Protein, Quantitative 59.9 mg/L (0-3.3) FN-Quo-D-Type Natriuretic Peptide 99 pg/mL (0-124) Total Protein 7.2 g/dL (6.4-8.2) Albumin 3.0 g/dL (3.4-5.0) Albumin/Globulin Ratio 0.7 (1.0-1.7) Influenza Type A Antigen Negative (NEGATIVE) Influenza Type B Antigen Negative (NEGATIVE) Segmented Neutrophils % 86 % (35-66) Band Neutrophils % 6 % (0-9) Lymphocytes % 8 % (24-48) Platelet Estimate Adequate (ADEQUATE) Phosphorus Level 2.6 mg/dL (2.6-4.7) Magnesium Level 2.5 mg/dL (1.8-2.4) Laboratory Tests Test 02/12/20 11:30 White Blood Count 3.9 x10^3/uL (4.0-11.0) Red Blood Count 4.22 x10^6/uL (3.50-5.40) Hemoglobin 13.6 g/dL (12.0-15.5) Hematocrit 38.6 % (36.0-47.0) Mean Corpuscular Volume 92 fL (79-100) Mean Corpuscular Hemoglobin 32 pg (25-35) Mean Corpuscular Hemoglobin Concent 35 g/dL (31-37) Red Cell Distribution Width 12.9 % (11.5-14.5) Platelet Count 221 x10^3/uL (140-400) Neutrophils (%) (Auto) 88 % (31-73) Lymphocytes (%) (Auto) 10 % (24-48) Monocytes (%) (Auto) 2 % (0-9) Eosinophils (%) (Auto) 0 % (0-3) Basophils (%) (Auto) 0 % (0-3) Neutrophils # (Auto) 3.4 x10^3/uL (1.8-7.7) Lymphocytes # (Auto) 0.4 x10^3/uL (1.0-4.8) Monocytes # (Auto) 0.1 x10^3/uL (0.0-1.1) Eosinophils # (Auto) 0.0 x10^3/uL (0.0-0.7) Basophils # (Auto) 0.0 x10^3/uL (0.0-0.2) Segmented Neutrophils % 86 % (35-66) Band Neutrophils % 6 % (0-9) Lymphocytes % 8 % (24-48) Platelet Estimate Adequate (ADEQUATE) Sodium Level 136 mmol/L (136-145) Potassium Level 3.6 mmol/L (3.5-5.1) Chloride Level 99 mmol/L (98-107) Carbon Dioxide Level 24 mmol/L (21-32) Anion Gap 13 (6-14) Blood Urea Nitrogen 16 mg/dL (7-20) Creatinine 0.9 mg/dL (0.6-1.0) Estimated GFR (Cockcroft-Gault) 66.8 Glucose Level 193 mg/dL (70-99) Calcium Level 9.2 mg/dL (8.5-10.1) Phosphorus Level 2.6 mg/dL (2.6-4.7) Magnesium Level 2.5 mg/dL (1.8-2.4) Medications Active Scripts Medications Dose Route/Sig Max Daily Dose Days Date Category Losartan-Hctz 50-12.5 Mg Tab (Losartan/Hydrochlorothiazide) 1 Each Tablet 1 Tab PO DAILY 02/12/20 Reported Arimidex (Anastrozole) 1 Mg Tablet 1 Mg PO DAILY 05/02/14 Reported Alprazolam 0.25 Mg Tablet 0.25 Mg PO PRN 3-4XDAILY PRN 05/02/14 Reported Advair 100-50 Diskus (Fluticasone/Salmeterol) 1 Each Disk.w.dev 1 Inh IH DAILY 11/07/13 Reported Comments CXR Impression: 1. Ill-defined multifocal opacities bilaterally, concerning for pneumonia including viral pneumonia. Recommend follow-up to ensure resolution. Impression . IMPRESSION: 1. Acute hypoxemic respiratory failure. 2. COVID-19 viral pneumonia. 3. Possible bacterial pneumonia. 4. Leukopenia. 5. Fever secondary to above. 6. Hypokalemia. 7. Elevated liver chemistries. 8. Protein malnutrition, present upon admission. Plan . continue current supplemental oxygen, on 3 liters N/C continue steroids S/P plasma, continue full course of remdesivir monitor clinical course Follow CXR PRN DVT/GI PPX D/W RN KIRA MARTINEZ MD Feb 13, 2020 08:26
[2020-02-13] MEDS ORDERED: NON FORMULARY ITEM IV SCH (09:00)
[2020-02-13] MEDS: ASCORBIC ACID 500 MG TABLET PO SCH (09:42)
[2020-02-13] MEDS: THIAMINE INJ 100 MG in IV DEXTROSE 5% 50 ML IV SCH (09:42)
[2020-02-13] MEDS: ENOXAPARIN 40 MG/0.4 ML SYRINGE. SQ SCH ×2 (09:43→21:49)
[2020-02-13] MEDS: REMDESIVIR 100mg in NORMAL SALINE 250ML X 4 DAYS IV SCH (17:25)
--- NOTE | 2020-02-13 17:35 | NUR ---
SW following. Spoke with RN and reviewed chart. Pt from home with spouse. Pt currently on 2l 02 with no home 02. SW awaiting results of 6 min walk. Pt on second bag of remdesivir with possible discharge home tomorrow, 02/13.
--- NOTE | 2020-02-13 20:44 | PDOC ---
[employer] PROGRESS NOTE Date of Service DOS: DATE: 02/13/20 TIME: 20:43 Chief Complaint Chief Complaint Acute hypoxic respiratory failure. COVID-19 pneumonia Hypokalemia DUNCAN due to vasomotor nephropathy Transaminitis Elevated ferritin and LDH levels Morbid obesity Admit to medicine for further management Pulmonary consult O2 supplementation to maintain saturations greater than 92% Start high-dose IV steroids IV and p.o. thiamine daily Vitamin C daily Pending D-dimer Lovenox for DVT treatment Regular diet Full code Discussed with RN and [place] Disposition inpatient care as above Surrogate decision maker is the History of Present Illness History of Present Illness 49-year-old female with past medical history of asthma and hypertension who presents with 3 to 4 days of fever cough and shortness of breath. Patient states that she returned from [place] last Tuesday and she gotten tested and she was positive for coronavirus. She states that she did have close contact with a COVID positive friend when they went to [place]. They are a total of 8 other friends that were affected and one of her friends is currently at the ICU at [facility]. She initially had diarrhea and she remained at home but she was not feeling any better and she was becoming more short of breath. She decided to come in today to become evaluated. Denies chest pain, abdominal pain, loss of smell, dysuria, bloody stools. 02/12/2020 No acute events overnight. Patient is saturating comfortably on 2 L nasal cannula. She feels much better and has more energy. Patient's chart, labs, images were reviewed and discussed with RN 02/13/2020 No acute events overnight. Patient continues to saturate in the low 90s at 3 L nasal cannula. Denies any shortness of breath or dyspnea. Patient's chart, labs, images were reviewed and discussed with RN Vitals/I&O Vitals/I&O: Vital Signs Date Time Temp Pulse Resp B/P (MAP) Pulse Ox O2 Delivery O2 Flow Rate FiO2 02/13/20 20:00 Nasal Cannula 2.5 02/13/20 19:20 98.1 60 20 107/64 (78) 95 98.1 I & O 02/12/20 02/12/20 02/13/20 15:00 23:00 07:00 Intake Total 120 ml 120 ml 20 ml Output Total 0 ml Balance 120 ml 120 ml 20 ml Physical Exam General: Alert, Oriented X3, Cooperative Heart: Regular rate Lungs: Clear Abdomen: Normal bowel sounds Extremities: No edema Skin: No significant lesion Labs Labs: Laboratory Tests Test 02/13/20 10:00 D-Dimer (Yesy) 0.43 ug/mlFEU (0.00-0.50) Assessment and Plan Assessmemt and Plan Problems Medical Problems: (1) 2019 novel coronavirus detected Status: Acute (2) Hypoxia Status: Acute Comment Review of Relevant I have reviewed the following items zofia (where applicable) has been applied. Medications: Current Medications Medications (Trade) Dose Ordered Sig/Lamar Route PRN Reason Start Time Stop Time Status Last Admin Dose Admin Non-Formulary Medication 1 ea/ Sodium Chloride 230 ml @ 460 mls/hr Q24H IV 02/13/20 17:00 02/16/20 17:29 02/13/20 17:25 Enoxaparin Sodium (Lovenox 40mg Syringe) 40 mg Q12HR SQ 02/12/20 21:00 02/13/20 09:43 Justifications for Admission Other Justification COVID 19 infection GIN CHATMAN MD Feb 13, 2020 20:44
[2020-02-13] MEDS ORDERED: MAGNESIUM SULFATE 2GM 50 ML IV PRN (23:00)
[2020-02-13] MEDS ORDERED: METOPROLOL TARTRATE 5 MG/5 ML VIAL. IVP ONE (23:30)
[2020-02-13] MEDS ORDERED: POTASSIUM CHLORIDE 20 MEQ TABLET.ER. PO ONE (23:30)
[2020-02-14] VITALS (7 sets, daily range): BP systolic 93–123; BP diastolic 51–82
[2020-02-14 00:10] LABS: CALCIUM 8.8 mg/dL (8.5-10.1); CREATININE 0.9 mg/dL (0.6-1.0); GFR 66.8; MAGNESIUM 2.5 mg/dL (1.8-2.4); POTASSIUM 3.4 mmol/L (3.5-5.1)
--- NOTE | 2020-02-14 00:44 | NUR ---
Patient noted to have SB HR at beginning of shift with HR 50s. At 2230 A-Fib with RVR noted on the tele monitor. HR 120s to 150s. Reported this to DR Sanchez. Orders to give Metoprolol IVP and check Chemistry and Mag level. Treat Chem and Mag levels with Non-ICU Electrolyte protocol. Patient denies history of A-Fib. Patient is A/O x 4. Resting in bed. Call light at hand.
[2020-02-14] MEDS ORDERED: METOPROLOL TARTRATE 5 MG/5 ML VIAL. IVP ONE ×3 (02:00→17:15)
[2020-02-14] MEDS: methylPREDNISolone SOD SUCC PF 40 MG/ML VIAL. IV SCH ×3 (05:10→21:06)
[2020-02-14] MEDS: METOPROLOL SUCC 24HR ER 25 MG TAB.ER.24H. PO SCH (07:10)
[2020-02-14] MEDS: IPRATROPIUM/ALBUTEROL 20/100mcg/INH INHALER. INH SCH ×4 (08:00→20:00)
--- NOTE | 2020-02-14 08:02 | NUR ---
Reported to DR Sanchez this morning gave 3 doses of Metoprolol 5mg IVP for total of 15mg thru the night. HR remains 150s. Gave PO Metoprolol 25mg at 0700. Called for EKG and CTA of chest. Consulted Cardiology.
[2020-02-14 08:06] LABS: CALCIUM 9.1 mg/dL (8.5-10.1); CREATININE 0.9 mg/dL (0.6-1.0); GFR 66.8; POTASSIUM 3.9 mmol/L (3.5-5.1)
[2020-02-14 08:15] LABS: D-DIMER 0.59 ug/mlFEU (0.00-0.50)
[2020-02-14] MEDS ORDERED: IOHEXOL 350 MG/ML 100 ML VIAL. IV ONE (08:30)
[2020-02-14] MEDS ORDERED: CONTRAST GIVEN. MC PRN (08:30)
[2020-02-14] MEDS ORDERED: METOPROLOL SUCC 24HR ER 25 MG TAB.ER.24H. PO SCH (09:00)
[2020-02-14] MEDS ORDERED: DIGOXIN IV 500 MCG/2 ML AMPUL. IV ONE ×2 (09:15→16:00)
[2020-02-14] MEDS: THIAMINE INJ 100 MG in IV DEXTROSE 5% 50 ML IV SCH (09:24)
[2020-02-14] MEDS: ENOXAPARIN 40 MG/0.4 ML SYRINGE. SQ SCH (09:25)
[2020-02-14] MEDS: ASCORBIC ACID 500 MG TABLET PO SCH (09:25)
--- NOTE | 2020-02-14 12:23 | PDOC ---
PULMONARY PROGRESS NOTES DATE: 02/14/20 TIME: 12:20 Subjective Patient denies shortness of breath, chest pain, or cough Reports good use of I-S afebrile overnight Converted into atrial fibrillation with rapid ventricular response, continues in A. fib RVR with rates in the 150s Patient is currently on 3 L nasal cannula Vitals Vital Signs Date Time Temp Pulse Resp B/P (MAP) Pulse Ox O2 Delivery O2 Flow Rate FiO2 02/14/20 09:30 136 93/51 02/14/20 07:05 97.9 15 94 Nasal Cannula 3.0 97.9 Comments Pt. seen gayla jain - pandemic, visual exam preformed A. fib with rapid ventricular response, rate 156 N/C no edema no rash Lungs: Clear Labs Laboratory Tests Test 02/13/20 10:00 02/13/20 23:55 02/14/20 07:44 D-Dimer (Yesy) 0.43 ug/mlFEU (0.00-0.50) 0.59 ug/mlFEU (0.00-0.50) Sodium Level 139 mmol/L (136-145) 141 mmol/L (136-145) Potassium Level 3.4 mmol/L (3.5-5.1) 3.9 mmol/L (3.5-5.1) Chloride Level 103 mmol/L (98-107) 105 mmol/L (98-107) Carbon Dioxide Level 26 mmol/L (21-32) 25 mmol/L (21-32) Anion Gap 10 (6-14) 11 (6-14) Blood Urea Nitrogen 26 mg/dL (7-20) 25 mg/dL (7-20) Creatinine 0.9 mg/dL (0.6-1.0) 0.9 mg/dL (0.6-1.0) Estimated GFR (Cockcroft-Gault) 66.8 66.8 Glucose Level 178 mg/dL (70-99) 179 mg/dL (70-99) Calcium Level 8.8 mg/dL (8.5-10.1) 9.1 mg/dL (8.5-10.1) Magnesium Level 2.5 mg/dL (1.8-2.4) Prothrombin Time 13.0 SEC (11.7-14.0) Prothromb Time International Ratio 1.0 (0.8-1.1) Activated Partial Thromboplast Time 23 SEC (24-38) Thyroid Stimulating Hormone (TSH) 0.348 uIU/mL (0.358-3.74) Laboratory Tests Test 02/13/20 23:55 02/14/20 07:44 Sodium Level 139 mmol/L (136-145) 141 mmol/L (136-145) Potassium Level 3.4 mmol/L (3.5-5.1) 3.9 mmol/L (3.5-5.1) Chloride Level 103 mmol/L (98-107) 105 mmol/L (98-107) Carbon Dioxide Level 26 mmol/L (21-32) 25 mmol/L (21-32) Anion Gap 10 (6-14) 11 (6-14) Blood Urea Nitrogen 26 mg/dL (7-20) 25 mg/dL (7-20) Creatinine 0.9 mg/dL (0.6-1.0) 0.9 mg/dL (0.6-1.0) Estimated GFR (Cockcroft-Gault) 66.8 66.8 Glucose Level 178 mg/dL (70-99) 179 mg/dL (70-99) Calcium Level 8.8 mg/dL (8.5-10.1) 9.1 mg/dL (8.5-10.1) Magnesium Level 2.5 mg/dL (1.8-2.4) Prothrombin Time 13.0 SEC (11.7-14.0) Prothromb Time International Ratio 1.0 (0.8-1.1) Activated Partial Thromboplast Time 23 SEC (24-38) D-Dimer (Yesy) 0.59 ug/mlFEU (0.00-0.50) Thyroid Stimulating Hormone (TSH) 0.348 uIU/mL (0.358-3.74) Medications Active Scripts Medications Dose Route/Sig Max Daily Dose Days Date Category Losartan-Hctz 50-12.5 Mg Tab (Losartan/Hydrochlorothiazide) 1 Each Tablet 1 Tab PO DAILY 02/12/20 Reported Arimidex (Anastrozole) 1 Mg Tablet 1 Mg PO DAILY 05/02/14 Reported Alprazolam 0.25 Mg Tablet 0.25 Mg PO PRN 3-4XDAILY PRN 05/02/14 Reported Advair 100-50 Diskus (Fluticasone/Salmeterol) 1 Each Disk.w.dev 1 Inh IH DAILY 11/07/13 Reported Comments CXR Impression: 1. Ill-defined multifocal opacities bilaterally, concerning for pneumonia including viral pneumonia. Recommend follow-up to ensure resolution. Impression . IMPRESSION: 1. Acute hypoxemic respiratory failure. 2. COVID-19 viral pneumonia. 3. Possible bacterial pneumonia. 4. Leukopenia. 5. Fever secondary to above. 6. Hypokalemia. 7. Elevated liver chemistries. 8. Protein malnutrition, present upon admission. 9. Atrial fibrillation with rapid ventricular response Plan . continue current supplemental oxygen, on 3 liters N/C continue steroids, with taper S/P plasma, continue full course of remdesivir monitor clinical course Follow CXR PRN Follow cardiology recommendations in regards to atrial fibrillation with rapid ventricular response DVT/GI PPX D/W KIRA REYES MD Feb 14, 2020 12:23
--- NOTE | 2020-02-14 12:37 | PDOC ---
[employer] PROGRESS NOTE Date of Service DOS: DATE: 02/14/20 TIME: 12:35 Chief Complaint Chief Complaint Acute hypoxic respiratory failure. COVID-19 pneumonia New onset A. fib RVR Hypokalemia DUNCAN due to vasomotor nephropathy Transaminitis Elevated ferritin and LDH levels Morbid obesity Elevated D-dimer Admit to medicine for further management Appreciate pulmonary recommendationscontinue IV steroids, remdesivir, and plasma Cardiology consult for atrial fibrillation Metoprolol IV given with minimal improvement. Will start digoxin loading dose Pending chest CTA O2 supplementation to maintain saturations greater than 92% IV and p.o. thiamine daily Vitamin C daily Lovenox for DVT treatment Regular diet Full code Discussed with RN and SW Disposition inpatient care as above Surrogate decision maker is the History of Present Illness History of Present Illness 49-year-old female with past medical history of asthma and hypertension who presents with 3 to 4 days of fever cough and shortness of breath. Patient states that she returned from [place] last Tuesday and she gotten tested and she was positive for coronavirus. She states that she did have close contact with a COVID positive friend when they went to [place]. They are a total of 8 other friends that were affected and one of her friends is currently at the ICU at [facility]. She initially had diarrhea and she remained at home but she was not feeling any better and she was becoming more short of breath. She decided to come in today to become evaluated. Denies chest pain, abdominal pain, loss of smell, dysuria, bloody stools. 02/12/2020 No acute events overnight. Patient is saturating comfortably on 2 L nasal cannula. She feels much better and has more energy. Patient's chart, labs, images were reviewed and discussed with RN 02/13/2020 No acute events overnight. Patient continues to saturate in the low 90s at 3 L nasal cannula. Denies any shortness of breath or dyspnea. Patient's chart, labs, images were reviewed and discussed with RN 02/14/2020 Patient with irregular rhythm and elevated heart rate to the 130s beats per minute on telemetry monitoring. Patient seen and examined bedside today with no major symptoms. Breathing comfortably and saturating 94% on 3 L nasal cannula. Patient's chart, labs, images were reviewed and discussed with RN Vitals/I&O Vitals/I&O: Vital Signs Date Time Temp Pulse Resp B/P (MAP) Pulse Ox O2 Delivery O2 Flow Rate FiO2 02/14/20 09:30 136 93/51 02/14/20 07:05 97.9 15 94 Nasal Cannula 3.0 97.9 I & O 02/13/20 02/13/20 02/14/20 15:00 23:00 07:00 Intake Total 100 ml Balance 100 ml Physical Exam General: Alert, Oriented X3, Cooperative Heart: Regular rate Lungs: Clear Abdomen: Normal bowel sounds Extremities: No edema Skin: No significant lesion Labs Labs: Laboratory Tests Test 02/13/20 23:55 02/14/20 07:44 Sodium Level 139 mmol/L (136-145) 141 mmol/L (136-145) Potassium Level 3.4 mmol/L (3.5-5.1) 3.9 mmol/L (3.5-5.1) Chloride Level 103 mmol/L (98-107) 105 mmol/L (98-107) Carbon Dioxide Level 26 mmol/L (21-32) 25 mmol/L (21-32) Anion Gap 10 (6-14) 11 (6-14) Blood Urea Nitrogen 26 mg/dL (7-20) 25 mg/dL (7-20) Creatinine 0.9 mg/dL (0.6-1.0) 0.9 mg/dL (0.6-1.0) Estimated GFR (Cockcroft-Gault) 66.8 66.8 Glucose Level 178 mg/dL (70-99) 179 mg/dL (70-99) Calcium Level 8.8 mg/dL (8.5-10.1) 9.1 mg/dL (8.5-10.1) Magnesium Level 2.5 mg/dL (1.8-2.4) Prothrombin Time 13.0 SEC (11.7-14.0) Prothromb Time International Ratio 1.0 (0.8-1.1) Activated Partial Thromboplast Time 23 SEC (24-38) D-Dimer (Yesy) 0.59 ug/mlFEU (0.00-0.50) Thyroid Stimulating Hormone (TSH) 0.348 uIU/mL (0.358-3.74) Assessment and Plan Assessmemt and Plan Problems Medical Problems: (1) 2019 novel coronavirus detected Status: Acute (2) Hypoxia Status: Acute Comment Review of Relevant I have reviewed the following items zofia (where applicable) has been applied. Medications: Current Medications Medications (Trade) Dose Ordered Sig/Lamar Route PRN Reason Start Time Stop Time Status Last Admin Dose Admin Non-Formulary Medication 1 ea/ Sodium Chloride 230 ml @ 460 mls/hr Q24H IV 02/13/20 17:00 02/16/20 17:29 02/13/20 17:25 Potassium Chloride (Klor-Con) 40 meq 1X ONCE PO 02/13/20 23:30 02/13/20 23:31 DC 02/14/20 00:20 Metoprolol Tartrate (Lopressor Vial) 5 mg 1X ONCE IVP 02/13/20 23:30 02/13/20 23:31 DC 02/13/20 23:19 Metoprolol Tartrate (Lopressor Vial) 5 mg 1X ONCE IVP 02/14/20 02:00 02/14/20 02:01 DC 02/14/20 01:37 Metoprolol Tartrate (Lopressor Vial) 5 mg 1X ONCE IVP 02/14/20 04:30 02/14/20 04:31 DC 02/14/20 05:09 Metoprolol Succinate (Toprol Xl) 25 mg DAILY PO 02/14/20 07:00 02/14/20 07:10 Iohexol (Omnipaque 350 Mg/ml) 100 ml 1X ONCE IV 02/14/20 08:30 02/14/20 08:31 DC 02/14/20 10:00 Digoxin (Lanoxin) 500 mcg 1X ONCE IV 02/14/20 09:15 02/14/20 09:16 DC 02/14/20 09:30 Justifications for Admission Other Justification COVID 19 infection GIN CHATMAN MD Feb 14, 2020 12:37
--- NOTE | 2020-02-14 12:44 | RAD ---
CT ANGIOGRAPHY CHEST INDICATION: TACHY OVERNIGHT COVID POS Comparison: Chest radiograph 02/11/2020. TECHNIQUE: Following the uneventful administration of intravenous contrast, 100 cc Omnipaque 350, axial CT sections were obtained through the lungs and upper abdomen. Multiplanar reconstructions and MIP images were obtained. PQRS compliance statement: One or more of the following individualized dose reduction techniques were utilized for this examination: 1. Automated exposure control 2. Adjustment of the mA and/or kV according to patient size 3. Use of iterative reconstruction technique FINDINGS: Pulmonary arteries: No evidence of pulmonary thromboembolic disease. Lungs and Airways: Diffuse bilateral ground glass opacities and consolidations. No abnormality of the central airways. Pleura: The pleural spaces are normal. Heart and Mediastinum: The visualized thyroid is normal in size and attenuation. No axillary or supraclavicular lymphadenopathy. No mediastinal, hilar or retrocrural lymphadenopathy. Cardiomegaly. No pericardial effusion. The great vessels of the thorax are normal. Abdomen: Cholecystectomy. Bones and Soft Tissues: The visualized bones and chest wall soft tissues are within normal limits. IMPRESSION: 1. No evidence of pulmonary thromboembolic disease. 2. Diffuse bilateral groundglass opacities and consolidations, consistent with patient's history of infection. Edema could have a similar appearance. Electronically signed by: Dylon Llamas MD (02/14/2020 12:41 PM) [id number]
--- NOTE | 2020-02-14 13:01 | EKG ---
[facility] [address] [place] [address] Test Date: 2020-02-14 Test Time: 13:03:18 Pat Name: AMARA SANDERS Department: Room: [facility] Gender: F Used Equipment Sales Representative: : 1970 Requested By: GIN CHATMAN Order Number: [id number] Reading MD: Measurements Intervals [place] Rate: 129 P: CT: QRS: 29 QRSD: 90 T: -59 QT: 298 QTc: 438 Interpretive Statements IRREGULAR RHYTHM, NO P-WAVE FOUND NO SPECIFIC ECG ABNORMALITIES RI6.01 No previous ECG available for comparison
--- NOTE | 2020-02-14 13:32 | PDOC2 ---
KORIN HOLM INVESTMENT BANKING ANALYST 02/14/20 1332: CARDIAC CONSULT DATE OF CONSULT Date of Consult DATE: 02/14/20 TIME: 13:24 REASON FOR CONSULT Reason for Consult: AFIB REFERRING PHYSICIAN Referring Physician: Dr. Sanchez SOURCE Source: Chart review, Patient HISTORY OF PRESENT ILLNESS HISTORY OF PRESENT ILLNESS This is a 49 yo female who presented secondary to shortness of breath. She tested positives for COVID 02/04/20. Was not getting any better so she saw her PCP, who recommended her to go to the ED for further evaluation and treatment. Was noted in AFIB with RVR this am, which prompted this consult. She denies any chest pain. Noted palpitations. No dizziness, diaphoresis, or nausea/vomiting. SOA has improved and she is now on RA. PAST MEDICAL HISTORY Cardiovascular: HTN Pulmonary: Asthma Heme/Onc: Cancer (breast ) PAST SURGICAL HISTORY Past Surgical History: Cholecystectomy, Mastectomy, Hysterectomy FAMILY HISTORY Family History: Diabetes, Hypertension SOCIAL HISTORY Smoke: No ALCOHOL: social Drugs: None Lives: with Family CURRENT MEDICATIONS CURRENT MEDICATIONS Current Medications Medications (Trade) Dose Ordered Sig/Lamar Route PRN Reason Start Time Stop Time Status Last Admin Dose Admin Non-Formulary Medication 1 ea/ Sodium Chloride 230 ml @ 460 mls/hr Q24H IV 02/13/20 17:00 02/16/20 17:29 02/13/20 17:25 Potassium Chloride (Klor-Con) 40 meq 1X ONCE PO 02/13/20 23:30 02/13/20 23:31 DC 02/14/20 00:20 Metoprolol Tartrate (Lopressor Vial) 5 mg 1X ONCE IVP 02/13/20 23:30 02/13/20 23:31 DC 02/13/20 23:19 Metoprolol Tartrate (Lopressor Vial) 5 mg 1X ONCE IVP 02/14/20 02:00 02/14/20 02:01 DC 02/14/20 01:37 Metoprolol Tartrate (Lopressor Vial) 5 mg 1X ONCE IVP 02/14/20 04:30 02/14/20 04:31 DC 02/14/20 05:09 Metoprolol Succinate (Toprol Xl) 25 mg DAILY PO 02/14/20 07:00 02/14/20 07:10 Iohexol (Omnipaque 350 Mg/ml) 100 ml 1X ONCE IV 02/14/20 08:30 02/14/20 08:31 DC 02/14/20 10:00 Digoxin (Lanoxin) 500 mcg 1X ONCE IV 02/14/20 09:15 02/14/20 09:16 DC 02/14/20 09:30 ALLERGIES ALLERGIES: Coded Allergies: metoclopramide (Verified Allergy, Severe, seizures, 05/03/14) prochlorperazine (Verified Allergy, Severe, seizures, 05/03/14) latex (Verified Allergy, Intermediate, RED RASH FROM GLOVES AND TAPES, 05/03/14) levofloxacin (Verified Allergy, Intermediate, Rash, 05/03/14) morphine (Verified Allergy, Intermediate, Hives, 02/11/20) adhesive (Verified Adverse Reaction, Intermediate, red welts, 05/03/14) ROS Review of System 14 point ROS conducted with pertinent positives noted above in hPI PHYSICAL EXAM General: Alert, Oriented X3, Cooperative, No acute distress HEENT: Atraumatic, Mucous membr. moist/pink Lungs: Other (diminished ) Heart: Other (AFIB with RVR) Extremities: No edema, Normal pulses Skin: No significant lesion Neuro: Normal speech, Sensation intact Psych/Mental Status: Mental status NL, Mood NL MUSCULOSKELETAL: No joint tenderness, No deformity VITALS/I&O VITALS/I&O: Vital Signs Date Time Temp Pulse Resp B/P (MAP) Pulse Ox O2 Delivery O2 Flow Rate FiO2 02/14/20 11:05 97.6 125 12 98/62 (74) 95 Nasal Cannula 3.0 97.6 I & O 02/13/20 02/13/20 02/14/20 14:59 22:59 06:59 Intake Total 100 ml Balance 100 ml LABS Lab: Laboratory Tests Test 02/13/20 23:55 02/14/20 07:44 Sodium Level 139 mmol/L (136-145) 141 mmol/L (136-145) Potassium Level 3.4 mmol/L (3.5-5.1) L 3.9 mmol/L (3.5-5.1) Chloride Level 103 mmol/L (98-107) 105 mmol/L (98-107) Carbon Dioxide Level 26 mmol/L (21-32) 25 mmol/L (21-32) Anion Gap 10 (6-14) 11 (6-14) Blood Urea Nitrogen 26 mg/dL (7-20) H 25 mg/dL (7-20) H Creatinine 0.9 mg/dL (0.6-1.0) 0.9 mg/dL (0.6-1.0) Estimated GFR (Cockcroft-Gault) 66.8 66.8 Glucose Level 178 mg/dL (70-99) H 179 mg/dL (70-99) H Calcium Level 8.8 mg/dL (8.5-10.1) 9.1 mg/dL (8.5-10.1) Magnesium Level 2.5 mg/dL (1.8-2.4) H Prothrombin Time 13.0 SEC (11.7-14.0) Prothrombin Time INR 1.0 (0.8-1.1) Activated Partial Thromboplast Time 23 SEC (24-38) L D-Dimer (Yesy) 0.59 ug/mlFEU (0.00-0.50) H Thyroid Stimulating Hormone (TSH) 0.348 uIU/mL (0.358-3.74) L Laboratory Tests 02/13/20 23:55 02/14/20 07:44 ASSESSMENT/PLAN ASSESSMENT/PLAN 1. Acute respiratory failure secondary to COVID PNA 2. AFIB with RVR; new onset in setting of above. s/p IV metoprolol and Dig this am 2. Leukopenia 3. Fevers 4. Hypokalemia; replaced 5. Elevated LFTs 6. Hypertension; low end 7. H/o breast CA Recommendations Repeat Digoxin as BP is low end TSH Lipids Outpatient echo when recovered from COVID [id number]; d/w primary account processor. Will start OAC in the setting of AFIB and COVID Consider outpatient event monitor to guide therapy Follow up with SANDEEP Villegas MD 02/14/20 0199: CARDIAC CONSULT ASSESSMENT/PLAN ASSESSMENT/PLAN Patient seen and evaluated. I agree with our nurse practitioners assessment and plan as above. Acute respiratory failure with Covid pneumonia. Continue treatment as per ID and pulmonary. Atrial fibrillation. New onset. Rapid ventricular response rate. Will start Eliquis. Treatment with IV beta-blockers and digoxin as tolerated. Echo as per Covid protocol. Hypokalemia. Resolving. History of breast cancer. KORIN HOLM APRN Feb 14, 2020 13:32 SANDEEP MEDINA MD Feb 14, 2020 17:37
[2020-02-14] MEDS: ASPIRIN ENTERIC COATED 81 MG TABLET.DR. PO SCH (15:57)
--- NOTE | 2020-02-14 17:09 | NUR ---
SW following. Spoke with RN and reviewed chart. Pt from home with spouse. Pt not ready for discharge per blood pressure. Pt currently on 2l 02 with no home 02. SW requested 6 min walk. Pt on third bag of remdesivir. SW following.
[2020-02-14] MEDS: REMDESIVIR 100mg in NORMAL SALINE 250ML X 4 DAYS IV SCH (18:02)
[2020-02-14] MEDS: APIXABAN 5 MG TABLET. PO SCH (21:04)
[2020-02-15 03:00] VITALS: BP 80/63
[2020-02-15 04:15] LABS: CHOLESTEROL/HDL RATIO 5.4
[2020-02-15] MEDS: methylPREDNISolone SOD SUCC PF 40 MG/ML VIAL. IV SCH ×3 (06:06→21:22)
[2020-02-15 07:05] VITALS: BP 92/85
[2020-02-15] MEDS: ASCORBIC ACID 500 MG TABLET PO SCH (09:10)
[2020-02-15] MEDS: ASPIRIN ENTERIC COATED 81 MG TABLET.DR. PO SCH (09:10)
[2020-02-15] MEDS: METOPROLOL SUCC 24HR ER 25 MG TAB.ER.24H. PO SCH (09:12)
[2020-02-15] MEDS: APIXABAN 5 MG TABLET. PO SCH ×2 (09:12→21:22)
[2020-02-15] MEDS ORDERED: ALPRAZolam 0.5 MG TABLET PO PRN (10:15)
[2020-02-15 11:05] VITALS: BP 99/63
[2020-02-15] MEDS: THIAMINE INJ 100 MG in IV DEXTROSE 5% 50 ML IV SCH (11:08)
--- NOTE | 2020-02-15 12:11 | PDOC ---
[employer] PROGRESS NOTE Date of Service DOS: DATE: 02/15/20 TIME: 11:59 Chief Complaint Chief Complaint Acute hypoxic respiratory failure. COVID-19 pneumonia New onset A. fib RVR likely due to hyperthyroidism, Graves' versus thyroiditis Hypokalemia DUNCAN due to vasomotor nephropathy Transaminitis Elevated ferritin and LDH levels Morbid obesity Elevated D-dimer We will complete thyroid work-up with T3 levels, thyroglobulin levels and thyrotropin antibodies. Will consider RAIU scan before starting methimazole. Would consider to hold off of amiodarone for rhythm control for A. fib at this time until determining the etiology for patient's hyperthyroidism. Appreciate pulmonary recommendationscontinue IV steroids, remdesivir, and plasma Cardiology consult for atrial fibrillation Metoprolol IV given with minimal improvement. Will start digoxin loading dose Pending chest CTA O2 supplementation to maintain saturations greater than 92% IV and p.o. thiamine daily Vitamin C daily Lovenox for DVT treatment Regular diet Full code Discussed with RN and SW Disposition inpatient care as above Surrogate decision maker is the History of Present Illness History of Present Illness 49-year-old female with past medical history of asthma and hypertension who presents with 3 to 4 days of fever cough and shortness of breath. Patient states that she returned from [place] last Tuesday and she gotten tested and she was positive for coronavirus. She states that she did have close contact with a COVID positive friend when they went to [place]. They are a total of 8 other friends that were affected and one of her friends is currently at the ICU at [facility]. She initially had diarrhea and she remained at home but she was not feeling any better and she was becoming more short of breath. She decided to come in today to become evaluated. Denies chest pain, abdominal pain, loss of smell, dysuria, bloody stools. 02/12/2020 No acute events overnight. Patient is saturating comfortably on 2 L nasal cannula. She feels much better and has more energy. Patient's chart, labs, images were reviewed and discussed with RN 02/13/2020 No acute events overnight. Patient continues to saturate in the low 90s at 3 L nasal cannula. Denies any shortness of breath or dyspnea. Patient's chart, labs, images were reviewed and discussed with RN 02/14/2020 Patient with irregular rhythm and elevated heart rate to the 130s beats per minute on telemetry monitoring. Patient seen and examined bedside today with no major symptoms. Breathing comfortably and saturating 94% on 3 L nasal cannula. Patient's chart, labs, images were reviewed and discussed with RN 02/15/2020 No acute events overnight. Patient continues to be in RVR despite IV digoxin and metoprolol. Blood pressure is low normal. Patient continues to be on low oxygen saturation of around 90 to 95% while on 3 L nasal cannula. Denies any dyspnea at this time. Patient's chart, labs, images were reviewed and discussed with RN Vitals/I&O Vitals/I&O: Vital Signs Date Time Temp Pulse Resp B/P (MAP) Pulse Ox O2 Delivery O2 Flow Rate FiO2 02/15/20 10:45 97 02/15/20 09:12 92/58 02/15/20 07:05 97.3 115 20 Nasal Cannula 3.0 97.3 I & O 02/14/20 02/14/20 02/15/20 15:00 23:00 07:00 Intake Total 300 ml Balance 300 ml Physical Exam General: Alert, Oriented X3, Cooperative, No acute distress Heart: Other (AFIB with RVR) Lungs: Clear Abdomen: Normal bowel sounds Extremities: No edema, Normal pulses Skin: No significant lesion Labs Labs: Laboratory Tests Test 02/15/20 03:15 Triglycerides Level 182 mg/dL (0-150) Cholesterol Level 163 mg/dL (0-200) LDL Cholesterol, Calculated 97 mg/dL (0-100) VLDL Cholesterol, Calculated 36 mg/dL (0-40) Non-HDL Cholesterol Calculated 133 mg/dL (0-129) HDL Cholesterol 30 mg/dL (40-60) Cholesterol/HDL Ratio 5.4 Free Thyroxine 1.63 ng/dL (0.76-1.46) Assessment and Plan Assessmemt and Plan Problems Medical Problems: (1) 2019 novel coronavirus detected Status: Acute (2) Hypoxia Status: Acute Comment Review of Relevant I have reviewed the following items zofia (where applicable) has been applied. Medications: Current Medications Medications (Trade) Dose Ordered Sig/Lamar Route PRN Reason Start Time Stop Time Status Last Admin Dose Admin Digoxin (Lanoxin) 250 mcg 1X ONCE IV 02/14/20 16:00 02/14/20 16:01 DC 02/14/20 15:57 Aspirin (Ecotrin) 81 mg [id number] PO 02/14/20 16:00 02/15/20 09:10 Metoprolol Tartrate (Lopressor Vial) 5 mg 1X ONCE IVP 02/14/20 17:15 02/14/20 17:16 DC 02/14/20 18:03 Apixaban (Eliquis) 5 mg BID PO 02/14/20 21:00 02/15/20 09:12 Alprazolam (Xanax) 0.5 mg PRN Q8HRS PRN PO ANXIETY / AGITATION 02/15/20 10:15 02/15/20 11:08 Justifications for Admission Other Justification COVID 19 infection GIN CHATMAN MD Feb 15, 2020 12:11
--- NOTE | 2020-02-15 12:53 | PDOC ---
PULMONARY PROGRESS NOTES DATE: 02/15/20 TIME: 12:47 Subjective Patient denies shortness of breath, chest pain, or cough afebrile overnight continues in A. fib RVR with rates in the 160s Patient is currently on 1 L nasal cannula Vitals Vital Signs Date Time Temp Pulse Resp B/P (MAP) Pulse Ox O2 Delivery O2 Flow Rate FiO2 02/15/20 10:45 97 02/15/20 09:12 92/58 02/15/20 08:00 Nasal Cannula 3.0 02/15/20 07:05 97.3 115 20 97.3 Comments Pt. seen gayla jain - pandemic, visual exam preformed A. fib with rapid ventricular response, rate 156 N/C no edema no rash Lungs: Clear Cardiovascular: Other (afib RVR) Labs Laboratory Tests Test 02/13/20 23:55 02/14/20 07:44 02/15/20 03:15 Sodium Level 139 mmol/L (136-145) 141 mmol/L (136-145) Potassium Level 3.4 mmol/L (3.5-5.1) 3.9 mmol/L (3.5-5.1) Chloride Level 103 mmol/L (98-107) 105 mmol/L (98-107) Carbon Dioxide Level 26 mmol/L (21-32) 25 mmol/L (21-32) Anion Gap 10 (6-14) 11 (6-14) Blood Urea Nitrogen 26 mg/dL (7-20) 25 mg/dL (7-20) Creatinine 0.9 mg/dL (0.6-1.0) 0.9 mg/dL (0.6-1.0) Estimated GFR (Cockcroft-Gault) 66.8 66.8 Glucose Level 178 mg/dL (70-99) 179 mg/dL (70-99) Calcium Level 8.8 mg/dL (8.5-10.1) 9.1 mg/dL (8.5-10.1) Magnesium Level 2.5 mg/dL (1.8-2.4) Prothrombin Time 13.0 SEC (11.7-14.0) Prothromb Time International Ratio 1.0 (0.8-1.1) Activated Partial Thromboplast Time 23 SEC (24-38) D-Dimer (Yesy) 0.59 ug/mlFEU (0.00-0.50) Thyroid Stimulating Hormone (TSH) 0.348 uIU/mL (0.358-3.74) Triglycerides Level 182 mg/dL (0-150) Cholesterol Level 163 mg/dL (0-200) LDL Cholesterol, Calculated 97 mg/dL (0-100) VLDL Cholesterol, Calculated 36 mg/dL (0-40) Non-HDL Cholesterol Calculated 133 mg/dL (0-129) HDL Cholesterol 30 mg/dL (40-60) Cholesterol/HDL Ratio 5.4 Free Thyroxine 1.63 ng/dL (0.76-1.46) Laboratory Tests Test 02/15/20 03:15 Triglycerides Level 182 mg/dL (0-150) Cholesterol Level 163 mg/dL (0-200) LDL Cholesterol, Calculated 97 mg/dL (0-100) VLDL Cholesterol, Calculated 36 mg/dL (0-40) Non-HDL Cholesterol Calculated 133 mg/dL (0-129) HDL Cholesterol 30 mg/dL (40-60) Cholesterol/HDL Ratio 5.4 Free Thyroxine 1.63 ng/dL (0.76-1.46) Medications Active Scripts Medications Dose Route/Sig Max Daily Dose Days Date Category Losartan-Hctz 50-12.5 Mg Tab (Losartan/Hydrochlorothiazide) 1 Each Tablet 1 Tab PO DAILY 02/12/20 Reported Arimidex (Anastrozole) 1 Mg Tablet 1 Mg PO DAILY 05/02/14 Reported Alprazolam 0.25 Mg Tablet 0.25 Mg PO PRN 3-4XDAILY PRN 05/02/14 Reported Advair 100-50 Diskus (Fluticasone/Salmeterol) 1 Each Disk.w.dev 1 Inh IH DAILY 11/07/13 Reported Comments CXR Impression: 1. Ill-defined multifocal opacities bilaterally, concerning for pneumonia including viral pneumonia. Recommend follow-up to ensure resolution. CTA chest IMPRESSION: 1. No evidence of pulmonary thromboembolic disease. 2. Diffuse bilateral groundglass opacities and consolidations, consistent with patient's history of infection. Edema could have a similar appearance. Impression . IMPRESSION: 1. Acute hypoxemic respiratory failure. 2. COVID-19 viral pneumonia. 3. Possible bacterial pneumonia. 4. Leukopenia. 5. Fever secondary to above. 6. Hypokalemia. 7. Elevated liver chemistries. 8. Protein malnutrition, present upon admission. 9. Atrial fibrillation with rapid ventricular response Plan . continue current supplemental oxygen, on 1 liters N/C, wean as tolerated unable to complete 6 min walk 2/2 afib rvr CTA chest reviewed-- no PE continue steroids, with taper S/P plasma, continue full course of remdesivir monitor clinical course Follow CXR PRN Follow cardiology recommendations in regards to atrial fibrillation with rapid ventricular response DVT/GI PPX -- now on adry D/W KIRA REYES MD Feb 15, 2020 12:53
[2020-02-15] MEDS ORDERED: DIGOXIN IV 500 MCG/2 ML AMPUL. IV ONE (13:00)
[2020-02-15] MEDS: IPRATROPIUM/ALBUTEROL 20/100mcg/INH INHALER. INH SCH ×2 (13:06→17:19)
[2020-02-15 15:05] VITALS: BP 115/68
[2020-02-15] MEDS: methIMAzole 10 MG TABLET PO SCH (15:15)
[2020-02-15] MEDS ORDERED: IV NORMAL SALINE 1000ML BAG 1,000 ML IV PRN (15:30)
[2020-02-15] MEDS ORDERED: METOPROLOL TARTRATE 5 MG/5 ML VIAL. IVP PRN (15:30)
--- NOTE | 2020-02-15 16:08 | PDOC ---
CARDIO Progress Notes Date and Time Date of Service 02/15/2020 Time of Evaluation 1400 Subjective Subjective: No Chest Pain, No Palpitations, Other (SOA better still coughing) Vitals Vitals Vital Signs Date Time Temp Pulse Resp B/P (MAP) Pulse Ox O2 Delivery O2 Flow Rate FiO2 02/15/20 13:39 177 02/15/20 11:05 97.4 18 99/63 (75) 97 Nasal Cannula 3.0 97.4 Weight Weight [ ] Input and Output Intake and Output Intake and Output 02/15/20 07:00 Intake Total 300 ml Balance 300 ml Intake Oral 300 ml # Voids 8 Laboratory Labs Laboratory Tests Test 02/15/20 03:15 Triglycerides Level 182 mg/dL (0-150) Cholesterol Level 163 mg/dL (0-200) LDL Cholesterol, Calculated 97 mg/dL (0-100) VLDL Cholesterol, Calculated 36 mg/dL (0-40) Non-HDL Cholesterol Calculated 133 mg/dL (0-129) HDL Cholesterol 30 mg/dL (40-60) Cholesterol/HDL Ratio 5.4 Free Thyroxine 1.63 ng/dL (0.76-1.46) Physical Exam Chest: Symmetric LUNGS: Other (diminished) Heart: irregularly irregular (AFIB RVR) Abdomen: Other (obese) Extremities: No Calf Tenderness Neurology: alert, oriented, follow commands Assessment Assessment 1. Acute respiratory failure secondary to COVID PNA 2. AFIB with RVR; new onset in setting of above hyperthyroidism contributing 2. Leukopenia 3. Fevers 4. Hypokalemia; normalized 5. Elevated LFTs 6. Hypertension; marginal 7. H/o breast CA Recommendations Repeat IV Digoxin. Continue Lopressor po. IV PRN pending BP trend Awaiting Thyroid workup. Outpatient echo when recovered from COVID Eliquis for stroke prevention Follow up with Dr. Cliff Crewsfation of Admission Dx: Justifications for Admission: Justification of Admission Dx: Yes BELLO THAYER APRN Feb 15, 2020 16:08
[2020-02-15] MEDS: REMDESIVIR 100mg in NORMAL SALINE 250ML X 4 DAYS IV SCH (17:19)
[2020-02-15 22:24] VITALS: BP 131/76
[2020-02-16 03:00] VITALS: BP 149/84
[2020-02-16] MEDS: methylPREDNISolone SOD SUCC PF 40 MG/ML VIAL. IV SCH ×2 (05:53→15:52)
[2020-02-16 07:00] VITALS: BP 110/66
[2020-02-16 11:00] VITALS: BP 120/77
[2020-02-16] MEDS: IPRATROPIUM/ALBUTEROL 20/100mcg/INH INHALER. INH SCH ×3 (11:08→16:58)
[2020-02-16] MEDS: ASPIRIN ENTERIC COATED 81 MG TABLET.DR. PO SCH (11:12)
[2020-02-16] MEDS: METOPROLOL SUCC 24HR ER 25 MG TAB.ER.24H. PO SCH (11:14)
[2020-02-16] MEDS: APIXABAN 5 MG TABLET. PO SCH (11:14)
[2020-02-16] MEDS: ASCORBIC ACID 500 MG TABLET PO SCH (11:14)
[2020-02-16] MEDS: THIAMINE INJ 100 MG in IV DEXTROSE 5% 50 ML IV SCH (11:18)
--- NOTE | 2020-02-16 11:22 | NUR ---
[employer] would not scan 02/14 and would not allow nurse to type in barcode manually.
[2020-02-16] MEDS: methIMAzole 10 MG TABLET PO SCH (11:23)
[2020-02-16] MEDS ORDERED: ANTI-COAG MONITOR BY PHARMACY. MC PRN (13:15)
--- NOTE | 2020-02-16 14:05 | PDOC ---
PULMONARY PROGRESS NOTES DATE: 02/16/20 TIME: 14:04 Subjective Patient feels better on room air wishes to go home Vitals Vital Signs Date Time Temp Pulse Resp B/P (MAP) Pulse Ox O2 Delivery O2 Flow Rate FiO2 02/16/20 11:14 86 120/77 02/16/20 11:00 97.8 18 99 Room Air 97.8 02/16/20 03:00 3.0 Comments Pt. seen gayla covid -19 pandemic, visual exam preformed A. fib with rapid ventricular response, rate 156 N/C no edema no rash Lungs: Clear Cardiovascular: Other (afib RVR) Labs Laboratory Tests Test 02/15/20 03:15 Triglycerides Level 182 mg/dL (0-150) Cholesterol Level 163 mg/dL (0-200) LDL Cholesterol, Calculated 97 mg/dL (0-100) VLDL Cholesterol, Calculated 36 mg/dL (0-40) Non-HDL Cholesterol Calculated 133 mg/dL (0-129) HDL Cholesterol 30 mg/dL (40-60) Cholesterol/HDL Ratio 5.4 Free Thyroxine 1.63 ng/dL (0.76-1.46) Total Triiodothyronine 64 ng/dL (71-180) Medications Active Scripts Medications Dose Route/Sig Max Daily Dose Days Date Category Losartan-Hctz 50-12.5 Mg Tab (Losartan/Hydrochlorothiazide) 1 Each Tablet 1 Tab PO DAILY 02/12/20 Reported Arimidex (Anastrozole) 1 Mg Tablet 1 Mg PO DAILY 05/02/14 Reported Alprazolam 0.25 Mg Tablet 0.25 Mg PO PRN 3-4XDAILY PRN 05/02/14 Reported Advair 100-50 Diskus (Fluticasone/Salmeterol) 1 Each Disk.w.dev 1 Inh IH DAILY 11/07/13 Reported Comments CXR Impression: 1. Ill-defined multifocal opacities bilaterally, concerning for pneumonia including viral pneumonia. Recommend follow-up to ensure resolution. CTA chest IMPRESSION: 1. No evidence of pulmonary thromboembolic disease. 2. Diffuse bilateral groundglass opacities and consolidations, consistent with patient's history of infection. Edema could have a similar appearance. Impression . IMPRESSION: 1. Acute hypoxemic respiratory failure. 2. COVID-19 viral pneumonia. 3. Possible bacterial pneumonia. 4. Leukopenia. 5. Fever secondary to above. 6. Hypokalemia. 7. Elevated liver chemistries. 8. Protein malnutrition, present upon admission. 9. Atrial fibrillation with rapid ventricular response Plan . Okay to discharge home, follow-up with me as needed Follow-up with cardiology Discussed with RN CTA chest reviewed-- no PE Total of 10 days of steroid S/P plasma, continue full course of remdesivir D/W KIRA REYES MD Feb 16, 2020 14:05
[2020-02-16 15:25] VITALS: BP 133/74
[2020-02-16] MEDS: REMDESIVIR 100mg in NORMAL SALINE 250ML X 4 DAYS IV SCH ×2 (15:52→16:59)
[2020-02-16] MEDS ORDERED: METO25TA4 PO (15:58)
[2020-02-16] MEDS ORDERED: APIX5TAB PO (15:58)
[2020-02-16] MEDS ORDERED: ASPI-886 PO (15:58)
[2020-02-16] MEDS ORDERED: METH-364 PO (15:59)
--- NOTE | 2020-02-16 16:01 | DISCH ---
DISCHARGE INSTRUCTIONS Condition on Discharge Condition on Discharge: Stable (Remain quaratine for at least 14 days from day of positive covid test) Activity After Discharge Activity Instructions for Disc: Avoid exertion Lifting Instructions after Dis: No heavy lifting Exercise Instruction after Dis: Walk 10 min, 3 x per day Driving Instructions after Dis: Do not drive Weight Bearing Status after Di: As tolerated Diet after Discharge Diet after Discharge: Regular Wound Incision Care Wound Care Equipment: Dressings Checks after Discharge Checks after discharge: Check blood press - daily DC Comment: You will need to complete your hyperthyroid workup with your PCP Contacting the DR. after DC Call your doctor for: Concerns you may have Follow-Up Follow up with: PCP in 1 week of discharge Follow Up With: cardiology for your atrial fibrillation GIN CHATMAN MD Feb 16, 2020 16:01
[2020-02-17] MEDS ORDERED: THIAMINE 100 MG TABLET. PO SCH (09:00)
== END 2020-02-16 18:00 | disposition home or self-care (01) | DRG 177 ==
LOC: ER 13:27 → ED HOLD 15:19 → 6 SOUTH 17:25 → UNDODISIN 02-13 14:31
PROVIDERS: ADMIT Internal Medicine; ATTEND Internal Medicine
PROC: XW13325 Transfusion of Convalescent Plasma (Nonautologous) into Peripheral Vein, Percutaneous Approach, New Technology Group 5 (ICD-10-PCS; principal; 2020-02-12)
DX: U07.1 COVID-19 (principal); N17.0 Acute kidney failure with tubular necrosis; J96.01 Acute respiratory failure with hypoxia; J12.89 Other viral pneumonia; E46 Unspecified protein-calorie malnutrition; D72.819 Decreased white blood cell count, unspecified; E05.90 Thyrotoxicosis, unspecified without thyrotoxic crisis or storm; E66.01 Morbid (severe) obesity due to excess calories; E87.6 Hypokalemia; I10 Essential (primary) hypertension; I48.91 Unspecified atrial fibrillation; J45.909 Unspecified asthma, uncomplicated; Z82.49 Family history of ischemic heart disease and other diseases of the circulatory system; Z83.3 Family history of diabetes mellitus; Z85.3 Personal history of malignant neoplasm of breast; Z87.891 Personal history of nicotine dependence; Z90.13 Acquired absence of bilateral breasts and nipples; Z90.710 Acquired absence of both cervix and uterus; Z88.5 Allergy status to narcotic agent; Z88.8 Allergy status to other drugs, medicaments and biological substances; Z88.1 Allergy status to other antibiotic agents; Z91.040 Latex allergy status
CPT/HCPCS: 36415; 71045; 71275; 80048; 80053; 80061; 82728; 83520; 83615; 83735; 83880; 84100; 84439; 84443; 84480; 84484; 85007; 85025; 85379; 85610; 85730; 86140; 86800; 86850; 86900; 86901; 86927; 87804; 93005; 94760; 99285; J0696; J1100; J1160; J1650; J2920; J3411; J3480; J3490; J7060; Q9967; G0378; P9017

== ENCOUNTER → 2020-02-25 | Outpatient (CLI) | payer BC ==
[2020-02-16 15:25] VITALS: BP 133/74
[~2020-02-25] MED LIST changes: +APIX5TAB PO; +ASPI-886 PO; +LOSA1TAB19 PO; +METH-364 PO; +METO25TA4 PO
--- NOTE | 2020-02-25 15:35 | RAD ---
EXAM: Thyroid sonogram. HISTORY: Thyroid nodule. Abnormal thyroid laboratory values. TECHNIQUE: Sonographic imaging of the thyroid was performed. COMPARISON: None. FINDINGS: The right there are lobe measures 4.5 x 2.0 x 1.4 cm. The left thyroid lobe measures 4.5 x 1.6 x 1.5 cm. The isthmus measures 4 mm in thickness. There is a single hypoechoic nodule within the superior right thyroid lobe measuring 11 x 7 x 4 mm. IMPRESSION: 1. 11 mm superior right thyroid nodule. TI-RADS Category 4: Sonographic follow-up is recommended based on the size of this lesion and sonographic features. 2. No additional thyroid lesion. The thyroid is normal in size. Electronically signed by: Giselle Masterson MD (02/25/2020 3:32 PM) [id number]
== END ==
LOC: US 14:33
PROVIDERS: ATTEND Nurse Practitioner
DX: E04.1 Nontoxic single thyroid nodule (principal)
CPT/HCPCS: 76536

== ENCOUNTER → 2020-02-27 | Outpatient (CLI) | payer BC ==
[2020-02-16 15:25] VITALS: BP 133/74
[2020-02-28 01:11] LABS: THYROXINE 8.6 ug/dL (4.5-12.0)
== END ==
LOC: SPEC 14:56
PROVIDERS: ATTEND Nurse Practitioner
DX: E07.9 Disorder of thyroid, unspecified (principal)
CPT/HCPCS: 36415; 84436; 84443; 84480

== ENCOUNTER → 2020-03-17 | Outpatient (CLI) | payer BC ==
[2020-02-16 15:25] VITALS: BP 133/74
[2020-03-17 15:56] LABS: FREE T4 0.98 ng/dL (0.76-1.46); THYROID STIM HORMONE (TSH) 1.777 uIU/mL (0.358-3.74)
[2020-03-18 00:08] LABS: T3 TOTAL 74 ng/dL (71-180); THYROPEROXIDASE ANTIBODY 8 IU/mL (0-34)
== END ==
LOC: LAB 14:31
PROVIDERS: ATTEND Internal Medicine Endocrinology, Diabetes & Metabolism
DX: E07.81 Sick-euthyroid syndrome (principal)
CPT/HCPCS: 36415; 84439; 84443; 84480; 86376

== ENCOUNTER → 2020-05-01 | Outpatient (CLI) | payer BC ==
[2020-05-01 10:23] LABS: FREE T4 1.07 ng/dL (0.76-1.46); THYROID STIM HORMONE (TSH) 1.288 uIU/mL (0.358-3.74)
== END ==
LOC: SPEC 09:41
PROVIDERS: ATTEND Internal Medicine Endocrinology, Diabetes & Metabolism
DX: E07.81 Sick-euthyroid syndrome (principal)
CPT/HCPCS: 36415; 84439; 84443

== ENCOUNTER → 2020-06-10 | Outpatient (CLI) | payer BC ==
[2020-06-10 16:26] LABS: FREE T4 0.99 ng/dL (0.76-1.46); THYROID STIM HORMONE (TSH) 1.444 uIU/mL (0.358-3.74)
== END ==
LOC: SPEC 15:44
PROVIDERS: ATTEND Internal Medicine Endocrinology, Diabetes & Metabolism
DX: E07.81 Sick-euthyroid syndrome (principal); I10 Essential (primary) hypertension
CPT/HCPCS: 36415; 84439; 84443

== ENCOUNTER → 2020-07-01 | Outpatient (CLI) | payer BC ==
[2020-07-01 10:11] LABS: ALBUMIN 3.7 g/dL (3.4-5.0); CREATININE 0.9 mg/dL (0.6-1.0); GFR 66.8; TOTAL BILIRUBIN 0.6 mg/dL (0.2-1.0); TOTAL PROTEIN 7.4 g/dL (6.4-8.2)
[2020-07-01 10:12] LABS: CHOLESTEROL/HDL RATIO 4.2
[2020-07-02 01:10] LABS: HEMOGLOBIN A1C 6.1 % (4.8-5.6)
== END ==
LOC: SPEC 09:29
PROVIDERS: ATTEND Internal Medicine Endocrinology, Diabetes & Metabolism
DX: E66.9 Obesity, unspecified (principal)
CPT/HCPCS: 36415; 80053; 80061; 83036; 83721

== ENCOUNTER → 2020-08-08 | Outpatient (CLI) | payer BC ==
[2020-08-09 00:12] LABS: HEMOGLOBIN A1C 5.6 % (4.8-5.6)
== END ==
LOC: SPEC 08:55
PROVIDERS: ATTEND Nurse Practitioner Adult Health
DX: I10 Essential (primary) hypertension (principal); E66.9 Obesity, unspecified
CPT/HCPCS: 36415; 83036

== ENCOUNTER → 2020-09-23 | Outpatient (CLI) | payer BC ==
--- NOTE | 2020-09-23 13:40 | RAD ---
US THYROID History: Reason: THYROID NODULE FOLLOW UP / Spl. Instructions: / History: Comparison: February 25, 2020 Technique: Multiple grayscale and color Doppler images of the thyroid gland were obtained. Findings: Right thyroid lobe: 4.7 x 1.8 x 1.0 cm. Homogeneous echotexture. Left thyroid lobe: 4.5 x 1.5 x 1.2 cm. Homogeneous echotexture. Isthmus: 0.4 cm. Previously seen nodule within the right thyroid is no longer identified. Tiny right mid thyroid nodul e measures 1 mm, may represent cyst although too small to further characterize. IMPRESSION: 1. Previously seen right thyroid nodule is no longer identified. No definite solid thyroid nodule on the current examination. Electronically signed by: Bola Iniguez DO (09/23/2020 1:37 PM) [facility]
== END ==
LOC: US 11:40
PROVIDERS: ATTEND Internal Medicine Endocrinology, Diabetes & Metabolism
DX: E04.1 Nontoxic single thyroid nodule (principal)
CPT/HCPCS: 76536

== ENCOUNTER → 2021-07-27 | Outpatient (CLI) | payer BC ==
[~2021-07-27] MED LIST changes: -METH-364 PO; +METH10TA32 PO
[2021-07-27 09:45] LABS: ALBUMIN/GLOBULIN RATIO 1.1 (1.0-1.7); CALCIUM 9.4 mg/dL (8.5-10.1); CREATININE 0.9 mg/dL (0.6-1.0); GFR 66.5; POTASSIUM 3.7 mmol/L (3.5-5.1); TOTAL BILIRUBIN 0.5 mg/dL (0.2-1.0); TOTAL PROTEIN 7.8 g/dL (6.4-8.2)
[2021-07-27 09:46] LABS: CHOLESTEROL/HDL RATIO 4.5
[2021-07-27 09:53] LABS: FREE T4 1.06 ng/dL (0.76-1.46); THYROID STIM HORMONE (TSH) 1.565 uIU/mL (0.358-3.74)
== END ==
LOC: LAB 09:10
PROVIDERS: ATTEND Nurse Practitioner Adult Health
DX: R73.03 Prediabetes (principal); E07.81 Sick-euthyroid syndrome
CPT/HCPCS: 36415; 80053; 80061; 83721; 84439; 84443

== ENCOUNTER → 2021-08-11 | Outpatient (CLI) | payer BC ==
--- NOTE | 2021-08-11 17:20 | CARD ---
MR#: [id number] Date of Study: 08/11/2021 Ordering Physician: SCOTT GIBBONS, Referring Physician: Nargis POLO: Yara Lea [facility] APPROVED REPORT EXAM: Two-dimensional and M-mode echocardiogram with Doppler and color Doppler. Other Information Quality : AverageHR: 75bpm Rhythm : NSRNSRAtrial FibrillationAtrial FlutterAPC'sPVC'sBradycardiaTachycardiaLBBBRBBBPacemaker INDICATION Atrial Fibrillation 2D DIMENSIONS RVDd2.9 (2.9-3.5cm)Left Atrium(2D)3.6 (1.6-4.0cm) IVSd1.3 (0.7-1.1cm)Aortic Root(2D)3.0 (2.0-3.7cm) LVDd4.6 (3.9-5.9cm)LVOT Diameter2.0 (1.8-2.4cm) PWd1.0 (0.7-1.1cm)LVDs3.1 (2.5-4.0cm) FS (%) 31.5 %SV57.9 ml Aortic Valve AoV Peak Johny.132.4cm/sAoV VTI25.9cm AO Peak GR.7.0mmHgLVOT Peak Johny.119.3cm/s LVOT VTI 23.33cmAO Mean GR.4mmHg MOOKIE (VMAX)2.61oa5SQK (VTI)2.90cm2 Mitral Valve MV E Eirdyzde42.8cm/sMV DECEL TOAS162tm MV A Jvceazdu04.8cm/sMV HAV53xl E/A Ratio1.0MVA (PHT)3.13cm2 TDI E/Lateral E'5.4E/Medial E'7.2 Pulmonary Valve PV Peak Tbxhtvbf650.3cm/sPV Peak Grad.5mmHg Tricuspid Valve TR P. Ozzbzxhq281qh/sRAP TNUTNGVB6vuYg TR Peak Gr.38opIzUVWO38kzWm Pulmonary Vein S1 Tufpqywe04.2cm/sD2 Mhkfhwgb28.4cm/s PVa qurzncrs794sazm LEFT VENTRICLE The left ventricle is normal size. There is normal left ventricular wall thickness. Left ventricular systolic function is normal. LV ejection fraction is 55 to 60%. No regional wall motion abnormalities noted. The left ventricular diastolic function is normal. No left ventricle thrombus noted on this s tudy. There is no ventricular septal defect visualized. There is no left ventricular aneurysm. There is no mass noted in the left ventricle. RIGHT VENTRICLE The right ventricle is normal size. There is normal right ventricular wall thickness. The right ventr icular systolic function is normal. ATRIA The left atrium size is normal. The right atrium size is normal. The interatrial septum is intact wit h no evidence for an atrial septal defect or patent foramen ovale as noted on 2-D or Doppler imaging. AORTIC VALVE The aortic valve is normal in structure and function. No aortic regurgitation is present. There is no aortic valvular stenosis. There is no aortic valvular vegetation. MITRAL VALVE The mitral valve is normal in structure and function. There is no evidence of mitral valve prolapse. There is no mitral valve stenosis. There is no mitral valve regurgitation noted. TRICUSPID VALVE The tricuspid valve is normal in structure and function. Doppler and Color Flow revealed trace to mil d tricuspid regurgitation. The PA pressure was estimated at 22 mmHg. There is no tricuspid valve prol apse or vegetation. There is no tricuspid valve stenosis. PULMONIC VALVE The pulmonary valve is normal in structure and function. There is no pulmonic valvular regurgitation. There is no pulmonic valvular stenosis. GREAT VESSELS The aortic root is normal in size. The ascending aorta is normal in size. The pulmonary artery is nor mal. The IVC is normal in size and collapses >50% with inspiration. PERICARDIAL EFFUSION There is no pleural effusion. The pericardium appears normal. Critical Notification Critical Value: No <Conclusion> The left ventricle is normal size. Left ventricular systolic function is normal. LV ejection fraction is 55 to 60%. No aortic regurgitation is present. There is no aortic valvular stenosis. There is no mitral valve regurgitation noted. Doppler and Color Flow revealed trace to mild tricuspid regurgitation. The PA pressure was estimated at 22 mmHg. Signed by : Matty Loera MD Electronically Approved : 08/11/2021 17:20:14
== END ==
LOC: ECHO 08:53
PROVIDERS: ATTEND Nurse Practitioner
DX: I07.1 Rheumatic tricuspid insufficiency (principal); I48.0 Paroxysmal atrial fibrillation
CPT/HCPCS: 93306; C8929